=== PATIENT | female | born 1930 | race Caucasian/White ===

== ENCOUNTER 2016-12-27 19:44 | Observation (INO) ==
[2016-12-27] MEDS ORDERED: Aspirin 81 MG TAB.CHEW PO ONE (20:05)
--- NOTE | 2016-12-27 20:34 | Emergency Department Note ---
Disposition Clinical Impression: Chest pain Disposition: Home, Self-Care Condition: Good Chest Pain HPI - General Chief Complaint: ED Chest Pain Stated Complaint: CP Time Seen by Provider: 12/27/16 19:52 Source: patient Limitations: no limitations Vital Signs Reviewed: Yes Nursing Notes Reviewed: Yes - History of Present Illness HPI Narrative: Ms. Silverio, an 86yo female, presents from home by daily with chief complaint chest pain. Onset this morning when she woke up; the chest pain did not wake her from sleep rather she awoke with the chest pain present. Described as a sharp stab localized to the left chest, nonradiating. Present at rest. Unchanged with exertion or movement. Duration of her pain is 2-3 minutes before self resolves only to return again intermittently. Denies associated dyspnea, diaphoresis, nausea, back pain, neck pain, jaw pain. Patient denies unusual weakness. Patient denies any anticoagulant or antiplatelet use including aspirin. Patient's last cardiac catheter was 2003. Her last chemical stress test was, " a very long time ago." PMH: Hypertension, hyperlipidemia, diabetes, obesity. Remote [place] without stents (2003). Severity scale (1-10): 0 - Related Data Allergies Allergy/AdvReac Type Severity Reaction Status Date / Time latex Allergy Rash Verified 01/13/16 12:26 adhesive AdvReac Rash Verified 12/27/16 22:36 modafinil [From Provigil] AdvReac Unkown Verified 12/27/16 22:36 Penicillins [PCN] AdvReac Rash Verified 01/13/16 12:26 All systems ED: reviewed and negative except as stated. Constitutional: Denies: fever, chills, weakness ENT ED: Denies: throat pain Cardiovascular: Reports: chest pain, dyspnea on exertion. Denies: palpitations , orthopnea, edema, syncope Respiratory: Denies: cough, dyspnea, wheezes Gastrointestinal: Denies: abdominal pain, nausea, vomiting, diarrhea, constipation Genitourinary: Denies: urgency, dysuria, frequency Musculoskeletal: Denies: back pain, neck pain Neurological: Denies: headache, weakness, numbness, paresthesias, confusion, vertigo Hematological/Lymphatic: Denies: easy bleeding, easy bruising Chest Pain PMH - Past Medical History Medical history: Reports: arthritis, diabetes, hyperlipidemia, hypertension Psychiatric history: Reports: anxiety, depression - Social History Smoking Status: Never smoker Alcohol use: Reports: occasionally Drug use: Reports: none Physical Exam General: Patient is alert, oriented, and in no acute distress. HEENT: No facial asymmetry. Head is normocephalic and atraumatic. PERRLA. Trachea midline. Cardiovascular: Heart regular rate and rhythm without clicks, rubs, gallops, or murmurs. No JVD. PMI nondisplaced. No pedal edema. Pain reproducible to palpation along the description of the left pectoralis minor. Respiratory: Symmetric chest rise with good respiratory effort. Bilateral breath sounds are clear without wheezing, crackles, or rhonchi. Abdomen: Obese. Bowel sounds present normoactive x-4 quadrants. Abdomen is soft, nondistended, and nontender. Psych: Patient's affect is appropriate for situation. - General Limitations: no limitations General appearance: alert, in no apparent distress Course Course Narrative: Patient does have chest pain to palpation along the distribution of the left pectoralis minor however she states this is different any chest pain which brought her into the emergency department. She has multiple comorbidities. We will perform a chest pain workup. Anticipate admission to hospital for chest pain with rule out for ACS. Patient's EKG shows sinus rhythm with first-degree AV block. Lab work is concerning; negative troponin, likely abnormalities, normal renal function, no CBC abnormalities. Disposition the patient and her family at bedside regarding the results of these lab studies as well as my clinical concern regarding her cardiac risk factors as well as her lack of recent cardiac studies to verbally risk stratify her. They collectively agreed for admission. Spoke with the hospitalist, Dr. Armtsrong, who agrees to except the patient to telemetry bed. She has no additional questions or concerns at this time. Vital Signs Temperature 98.7 F 12/27/16 19:47 Pulse Rate 74 12/27/16 19:47 Respiratory Rate 16 12/27/16 19:47 Blood Pressure 165/83 12/27/16 19:47 O2 Sat by Pulse Oximetry 65 L 12/27/16 19:47 Temperature 98.7 F 12/27/16 19:47 Pulse Rate 61 12/27/16 22:00 Respiratory Rate 18 12/27/16 22:00 Blood Pressure 140/68 12/27/16 22:00 O2 Sat by Pulse Oximetry 93 L 12/27/16 22:00 Oxygen Delivery Oxygen Delivery Room Air Chest Pain - Lab Data Lab results reviewed: Yes I reviewed the patient's lab results. Result diagrams: 12/27/16 20:45 12/27/16 20:45 Lab Results 12/27/16 12/27/16 12/27/16 Range/Units 20:45 20:45 20:45 WBC 10.2 (4.3-11.1) K/mcL RBC 4.27 (3.82-4.97) M/mcL Hgb 12.9 (11.5-15.4) g/dL Hct 39.1 (35.3-44.9) % MCV 91.6 (83.0-100.0) fL MCH 30.2 (28.0-33.3) pg MCHC 33.0 (31.6-35.5) g/dL RDW 13.6 (11.5-14.5) % Plt Count 265 (140-400) K/mcL MPV 10.3 (9.4-12.4) fL Immature Gran % 0.2 (0-4) % Seg Neutrophils % 34.6 % Lymphocytes % 47.7 % Monocytes % 7.1 % Eosinophils % 9.4 % Basophils % 1.0 % Neutrophils # 3.5 (1.6-8.9) K/mcL Lymphocytes # 4.9 H (0.6-4.6) K/mcL Monocytes # 0.7 (0.0-1.3) K/mcL Eosinophils # 1.0 H (0.0-0.6) K/mcL Basophils # 0.1 (0.0-0.2) K/mcL Sodium 141 (136-145) mEq/L Potassium 3.9 (3.5-4.5) mEq/L Chloride 103 (98-109) mEq/L Carbon Dioxide 31 H (19-29) mEq/L BUN 16 (7-20) mg/dL Creatinine 0.76 (0.57-1.11) mg/dL Est GFR ( Amer) > 60 (> 60) Est GFR (Non-Af Amer) > 60 (> 60) BUN/Creatinine Ratio 21 (6-26) Glucose 128 H (70-99) mg/dL Calculated Osmolality 295 (280-300) Calcium 9.1 (8.6-10.8) mg/dL Troponin I 0.01 (0-0.03) ng/mL - Radiology Data Radiology results reviewed: Yes I reviewed the patient's radiology results. Chest X-Ray 12/27/16 20:05 IMPRESSION: No acute findings. D/ / Mindy Reddy MD / Mindy Reddy MD Interpreting Provider: Mindy Reddy MD - EKG Data EKG attestation: Yes I reviewed and interpreted this EKG. EKG results narrative: EKG dated 27 December at 19:59 interpreted as sinus rhythm with rate of 67. First- degree AV block with DC 214. QRS 82, QT/QTC 399/414. Normal axis. No ST elevations or depressions. Isolated T-wave inversion in V1. No previous EKG for comparison. Heart Score - Score History: Slightly Suspicious EKG: Non Specific repolarisation Disturbance Age: Greater than 65 Risk Factors: Equal/Greater than 3 risk factor or history of atherosclerotic disease Troponin: Less than normal limit HEART Score Total: 5 Attestation Statement - Attestation Attestation: DR Eduardo note: Pt seen in conjunction w/ Resident Damien Gomez; Please see his charting for complete documentation; I agree w/ pt's treatment and disposition and spent face to face time w/ the pt; admitted pain-free. Intermittent left parasternal chest pain since this morning. EKG and blood work unremarkable at this time
[2016-12-27 20:54] LABS: Basophils # 0.1 K/mcL (0.0-0.2); Eosinophils % 9.4 %; Hematocrit 39.1 % (35.3-44.9); Hemoglobin 12.9 g/dL (11.5-15.4); Immature Granulocytes % 0.2 % (0-4); Lymphocytes # 4.9 K/mcL (0.6-4.6); Lymphocytes % 47.7 %; Mean Corpuscular Hemoglobin 30.2 pg (28.0-33.3); Mean Corpuscular Volume 91.6 fL (83.0-100.0); Mean Platelet Volume 10.3 fL (9.4-12.4); Monocytes # 0.7 K/mcL (0.0-1.3); Monocytes % 7.1 %; Neutrophils # 3.5 K/mcL (1.6-8.9); Platelet Count 265 K/mcL (140-400); Red Blood Count 4.27 M/mcL (3.82-4.97); Red Cell Distribution Width 13.6 % (11.5-14.5); Segmented Neutrophils % 34.6 %
[2016-12-27 21:07] LABS: BUN/Creatinine Ratio 21 (6-26); Blood Urea Nitrogen 16 mg/dL (7-20); Carbon Dioxide 31 mEq/L (19-29); Chloride 103 mEq/L (98-109); Glucose 128 mg/dL (70-99); Potassium 3.9 mEq/L (3.5-4.5); Sodium 141 mEq/L (136-145); eGFR For African Americans > 60 (> 60); eGFR For Non-African Americans > 60 (> 60)
[2016-12-27 21:08] LABS: Calcium 9.1 mg/dL (8.6-10.8); Osmolality,Calculated 295 (280-300)
--- NOTE | 2016-12-28 00:57 | Internal Med History&Physical ---
Date of Encounter: 12/28/16 Time of Encounter: 01:47 Assessment and Plan (1) Chest pain Current visit: Yes Status: Acute trend troponins echo nuclear stress consult to cardiology Qualifiers: Chest pain type: unspecified Qualified Code(s): R07.9 - Chest pain, unspecified (2) HTN (hypertension) Current visit: Yes Status: Chronic continue home medication Qualifiers: Hypertension type: essential hypertension Qualified Code(s): I10 - Essential (primary) hypertension (3) CAD (coronary artery disease) Current visit: Yes Status: Chronic Qualifiers: Coronary Disease-Associated Artery/Lesion type: [place] artery [place] vs. 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 Silverio is a 86 year old hypertensive diabetic with hyperlipemidia, CAD, HENRY , and obesity who presents to the ER with chest pain. The chest pain started this morning and has been on and off all day. The chest pain is sharp in nature like a stabbing of a needle. This located in the left side of her chest to chest pain only last for a very short amount of time and comes and goes. The chest pain does not radiate anywhere. There is no associated shortness of breath, diaphoresis, nausea, vomiting. Review of records shows cardiology work-up history to include the following: [facility] 08/2011 moderate single vessel disease, 50-60% stenosis distal R coronary artery; LV EF 60% nuclear stress 07/2011 EKG negative for ischemia; nuclear exam evidence for mild anterior, nishant-septal, and anterolateral reversible decreased uptake suggestive of stress induced ischemia; gated EF 69% echo 06/2011 LVEF 70%; aortic valve leaflets mildly calcified; mitral valve normal structure, mild mitral annular calcification Past Med Surg Social Fam HX - Past Medical History Medical history: arthritis, coronary artery disease, diabetes, GERD, hyperlipidemia, hypertension, other (lumbar back pain, HENRY, osteopenia) Psychiatric history: anxiety, depression - Past Surgical History Surgical History: appendectomy, cataract, cholecystectomy, herniorrhaphy, hysterectomy, knee replacement - Social History Smoking Status: Never smoker Smokeless Tobacco Status: No Alcohol use: occasionally Drug use: none - Family History Mother Adopted: [place]: SYLVAIN Family Member Ethnicity: Non- Living Status: Age at : 63 Cause of : STROKE Hx Family Cardiac Disorders: Yes ([place]) Hx Family Cancer: Yes (BREAST) Hx Family GI Disorders: Yes Hx Family Endocrine Disorder: Yes (DM) Hx Family Musculoskeletal Disorders: No Hx Family Neuromuscular Disorders: No Hx Family Neurologic Disorders: Yes (CVA) Hx Family HEENT Disorders: Yes (SX) Hx Family Autoimmune Disorders: No Hx Family Reproductive Disorders: No Hx Family Psychosocial Disorders: No Hx Family Medical Disorders: No Internal Medicine - H&P: Meds Alendronate Sodium [Fosamax] 70 mg PO QWEEK 12/27/16 [History] Amitriptyline [Elavil] 10 mg PO HS 12/27/16 [History] Citalopram Hydrobromide [Citalopram HBr] 10 mg PO DAILY 12/27/16 [History] Furosemide [Lasix] 40 mg PO DAILY 12/27/16 [History] Gabapentin [Neurontin] 300 mg PO TID 12/27/16 [History] Glimepiride [Amaryl] 4 mg PO QAM 12/27/16 [History] Loratadine [Claritin] 10 mg PO DAILY 12/27/16 [History] Losartan Potassium [Cozaar] 100 mg PO DAILY 12/27/16 [History] Metformin [Glucophage] 500 mg PO BIDWM 12/27/16 [History] Multivitamin [Multi-Day Vitamins] 1 each PO DAILY 12/27/16 [History] Naproxen Sodium [Aleve] 220 mg PO Q12H 12/27/16 [History] Oxycodone HCl/Acetaminophen [Percocet 5-325 mg Tablet] 1 each PO BID PRN [History] Potassium Chloride [K-Tab ER] 20 meq PO DAILY 12/27/16 [History] Sucralfate [Carafate] 1 gm PO 0730,1630 12/27/16 [History] Vit C/Vit E/Lutein/Min/[place]-3 [Ocuvite Softgel] 1 each PO DAILY 12/27/16 [ History] Allergies latex Allergy (Verified 01/13/16 12:26) Rash adhesive Adverse Reaction (Verified 12/27/16 22:36) Rash modafinil [From Provigil] Adverse Reaction (Verified 12/27/16 22:36) Unkown Penicillins [PCN] Adverse Reaction (Verified 01/13/16 12:26) Rash All Systems PM: A 10-system review of systems was performed and is negative for pertinent findings except as documented above in the HPI. - Constitutional Constitutional: no chills, no fatigue, no fever(s), no night sweats - EENT Eyes: no blurry vision, no change in vision, no discharge, no pain, no photophobia Ears: no ear discharge, no ear pain, no tinnitus Nose, mouth and throat: no dysphagia, no nasal congestion, no nasal discharge, no neck pain, no sore throat - Cardiovascular Cardiovascular ROS IM: chest pain, no diaphoresis, no dyspnea, no lightheadedness, no palpitations, no syncope - Respiratory Respiratory: no cough, no dyspnea, no wheezing, no excessive phlegm production - Gastrointestinal Gastrointestinal: no abdominal pain, no diarrhea, no hematemesis, no hematochezia, no melena, no nausea, no vomiting - Genitourinary Genitourinary: no change in urinary stream, no dysuria, no flank pain, no hematuria, no urinary frequency, no urinary hesitancy - Musculoskeletal Musculoskeletal ROS IM: no arthralgias, no myalgias, no numbness, no tingling - Integumentary Integumentary IM: no rash, no unusual bruising - Neurological Neurological ROS: no confusion, no convulsions, no focal weakness, no numbness, no tingling, no tremor(s) - Hematologic/Lymphatic Hematologic/Lymphatic: no easy bruising - Constitutional Vitals: Temp Pulse Resp BP Pulse Ox 97.6 F 63 12 152/82 93 L 12/27/16 23:53 12/27/16 23:53 12/27/16 23:53 12/27/16 23:53 12/27/16 23:53 General appearance: Present: A&O X 3, pleasant, no acute distress, obese, answers questions appropriately - Head Head exam: Present: atraumatic, normocephalic - Eye Eye exam: Present: PERRL, conjuntiva pink, sclera anicteric Pupils: Present: PERRL - Neck Neck exam general surgery: Present: supple, trachea midline. Absent: lymphadenopathy - Respiratory Respiratory exam: Present: CTAB. Absent: accessory muscle use, rales, rhonchi, wheezes - Cardiovascular Cardiovascular exam: Present: RRR, +S1, +S2. Absent: diastolic murmur, gallop, rubs, systolic murmur - GI/Abdominal GI/Abdominal exam: Present: normal bowel sounds, soft, no peritoneal signs. Absent: distended, tenderness - Extremities Exam Extremities exam: Present: warm, radial pulses palpable and symetrical. Absent : calf tenderness, cyanotic, pedal edema - Neurological Exam Neurological exam: Present: CN II-XII intact, oriented X3, no focal deficits. Absent: pronater drift, facial droop, speech deficit - Skin Skin exam: Present: dry, intact Internal Med - H&P Results - Labs CBC & Chem 7: 12/27/16 20:45 12/27/16 20:45
[2016-12-28] MEDS ORDERED: D5% in Water 1,000 ML IV PRN ×2 (01:53→01:59)
[2016-12-28] MEDS ORDERED: *HR* Dextrose 50 % in Water (Syg) 50 ML SYRINGE IVP PRN ×2 (01:53→01:59)
[2016-12-28] MEDS ORDERED: Dextrose Gel 15 GM PO PRN ×4 (01:53→01:59)
[2016-12-28] MEDS ORDERED: Acetaminophen 325 MG TABLET PO PRN (01:53)
[2016-12-28] MEDS ORDERED: Naloxone 0.4 MG/ML INJ IVP PRN (01:53)
--- NOTE | 2016-12-28 03:15 | Event Note ---
Date of Encounter: 12/28/16 Time of Encounter: 03:14 Efficiency and examined with medical payment poster. Agree with assessment and plan. Patient with risk factors including diabetes mellitus, hypertension, dyslipidemia what a coronary angiogram 2010 showing 50 to 60% with RC disease presents to the hospital with chest pain. Chest pain appeared at typical localized lasting for a few seconds. Serial cardiac enzymes. Stress test will be ordered. Cardiology evaluation.
[2016-12-28] MEDS: *HR* Heparin 5,000 UNIT/ML VIAL SQ SCH ×3 (06:00→21:30)
[2016-12-28] MEDS: Insulin LISPRO 300 UNITS/3 ML VIAL SQ SCH ×4 (06:15→23:56)
[2016-12-28] MEDS ORDERED: Regadenoson 0.4 MG/5 ML SYRINGE IVP ONE (07:20)
--- NOTE | 2016-12-28 08:41 | Cardiology Consult Note ---
Date of Encounter: 12/28/16 Time of Encounter: 08:27 Assessment and Plan (1) Chest pain Current Visit: Yes Status: Acute Atypical brief episode of chest pain. Troponin negative. Stress test and echo pending. H/o moderate non-obstructive CAD. We will follow with you. Qualifiers: Chest pain type: unspecified Qualified Code(s): R07.9 - Chest pain, unspecified (2) CAD (coronary artery disease) Current Visit: Yes Status: Chronic [facility] 08/2011 showed moderate single vessel disease, 50-60% stenosis in the dRCA; LV EF 60% echo 06/2011 LVEF 70%; aortic valve leaflets mildly calcified; mitral valve normal structure, mild mitral annular calcification. She does not follow with cardiology currently. Recommended asa, statin, and bb. Aggressive risk factor modification. Qualifiers: Coronary Disease-Associated Artery/Lesion type: [place] artery [place] vs. transplanted heart: [place] heart Associated angina: without angina Qualified Code(s): I25.10 - Atherosclerotic heart disease of [place] coronary artery without angina pectoris (3) HTN (hypertension) Current Visit: Yes Status: Chronic B/p acceptable this morning. Qualifiers: Hypertension type: essential hypertension Qualified Code(s): I10 - Essential (primary) hypertension Discussion w patient/family: The assessment and plan as outlined above was discussed with the patient and/or family members who expressed understanding and agreement. All questions were answered. Thank you for involving us in the care of your patient. Please call with any questions. History of Present Illness Consult date: 12/28/16 Requesting physician: Colby Armstrong Consult reason: Chest pain Chief complaint: chest pain History of present illness: Ms. Silverio is a 86 year old female with a history of moderate non-obstructive CAD, DM type II, HTN, and HLD who presents with chest pain. Sharp pain over her left breast lasting only a second. Pain was non-radiating. Her daughters decided to bring her to the hospital. She denies any other episodes of chest pain. She admits to SOB with exertion that is stable. Denies orthopnea, PND, or edema. Denies n/v or diaphoresis. Denies palpitations or dizziness. She was seen in the stress lab. Troponin negative x2. Stress test and echocardiogram ordered by primary team. Previous cardiac testing: [facility] 08/2011 moderate single vessel disease, 50-60% stenosis dRCA; LV EF 60% nuclear stress 07/2011 EKG negative for ischemia; nuclear exam evidence for mild anterior, nishant-septal, and anterolateral reversible decreased uptake suggestive of stress induced ischemia; gated EF 69% echo 06/2011 LVEF 70%; aortic valve leaflets mildly calcified; mitral valve normal structure, mild mitral annular calcification Past Med Surg Social Fam HX - Past Medical History Medical history: arthritis, coronary artery disease, diabetes, GERD, hyperlipidemia, hypertension, other (lumbar back pain, HENRY, osteopenia) Psychiatric history: anxiety, depression - Past Surgical History Surgical History: appendectomy, cataract, cholecystectomy, herniorrhaphy, hysterectomy, knee replacement - Social History Smoking Status: Never smoker Smokeless Tobacco Status: No Alcohol use: occasionally Drug use: none - Family History Mother Adopted: [place]: SYLVAIN Family Member Ethnicity: Non- Living Status: Age at : 63 Cause of : STROKE Hx Family Cardiac Disorders: Yes ([place]) Hx Family Cancer: Yes (BREAST) Hx Family GI Disorders: Yes Hx Family Endocrine Disorder: Yes (DM) Hx Family Musculoskeletal Disorders: No Hx Family Neuromuscular Disorders: No Hx Family Neurologic Disorders: Yes (CVA) Hx Family HEENT Disorders: Yes (SX) Hx Family Autoimmune Disorders: No Hx Family Reproductive Disorders: No Hx Family Psychosocial Disorders: No Hx Family Medical Disorders: No Medications and Allergies Alendronate Sodium [Fosamax] 70 mg PO QWEEK 12/27/16 [History] Amitriptyline [Elavil] 10 mg PO HS 12/27/16 [History] Citalopram Hydrobromide [Citalopram HBr] 10 mg PO DAILY 12/27/16 [History] Furosemide [Lasix] 40 mg PO DAILY 12/27/16 [History] Gabapentin [Neurontin] 300 mg PO TID 12/27/16 [History] Glimepiride [Amaryl] 4 mg PO QAM 12/27/16 [History] Loratadine [Claritin] 10 mg PO DAILY 12/27/16 [History] Losartan Potassium [Cozaar] 100 mg PO DAILY 12/27/16 [History] Metformin [Glucophage] 500 mg PO BIDWM 12/27/16 [History] Multivitamin [Multi-Day Vitamins] 1 each PO DAILY 12/27/16 [History] Naproxen Sodium [Aleve] 220 mg PO Q12H 12/27/16 [History] Oxycodone HCl/Acetaminophen [Percocet 5-325 mg Tablet] 1 each PO BID PRN [History] Potassium Chloride [K-Tab ER] 20 meq PO DAILY 12/27/16 [History] Sucralfate [Carafate] 1 gm PO 0730,1630 12/27/16 [History] Vit C/Vit E/Lutein/Min/[place]-3 [Ocuvite Softgel] 1 each PO DAILY 12/27/16 [ History] Allergies latex Allergy (Verified 01/13/16 12:26) Rash adhesive Adverse Reaction (Verified 12/27/16 22:36) Rash modafinil [From Provigil] Adverse Reaction (Verified 12/27/16 22:36) Unkown Penicillins [PCN] Adverse Reaction (Verified 01/13/16 12:26) Rash All Systems Review: A 10-system review of systems was performed and is negative for pertinent findings except as documented above in the HPI. Physical Examination Vital Signs Temp Pulse Resp BP Pulse Ox 12/28/16 04:13 97.9 F 69 12 112/67 93 L 12/27/16 23:53 97.6 F 63 12 152/82 93 L 12/27/16 23:01 18 163/88 12/27/16 22:00 61 18 140/68 93 L 12/27/16 20:27 67 18 148/72 95 12/27/16 19:47 98.7 F 74 16 165/83 95 Intake and Output 12/27/16 12/28/16 12/28/16 23:59 07:59 15:59 Other: Weight 101.333 kg 100.879 kg Blood Glucose* 138 Patient Weight 12/28/16 23:59 Weight 100.879 kg General: Conversant, No Apparent Distress HEENT: Atraumatic, Normocephaly, Mucus Membranes Moist Neck: No JVD, Normal carotid pulses Cardiac: Reg Rate and Rhythm, Normal S1 and S2, No Murmur Lungs: Normal Breath Sounds, No Wheeze, Rales, Rhonchi Neuro: Alert and responsive, No focal deficits noted Abdomen: Soft, Non-Tender Skin: No rashes noted on visualized skin Musculoskeletal: No Chest Wall Tenderness Extremities: No Clubbing, No Cyanosis, No Edema, Normal Pulses Results 12/27/16 20:45 12/27/16 20:45 Lab Results 12/28/16 03:28 Troponin I 0.00 Chest X-Ray 12/27/16 20:05 IMPRESSION: No acute findings. D/ / Mindy Reddy MD / Mindy Reddy MD Interpreting Provider: Mindy Reddy MD - EKG Interpretation EKG results cardiology: personally reviewed (SR with no acute ST changes.) Consult Discharge Plan - Plan Referrals: Rosita Swain, [employer] [Primary Care Provider] -
[2016-12-28] MEDS ORDERED: Aspirin 325 MG TABLET PO SCH (09:00)
[2016-12-28] MEDS ORDERED: Aspirin 81 MG TAB.CHEW ONE (10:02)
[2016-12-28] MEDS: Sucralfate 1 GM TABLET PO SCH ×2 (10:03→17:13)
[2016-12-28] MEDS: Loratadine 10 MG TABLET PO SCH (10:03)
[2016-12-28] MEDS: Furosemide 40 MG TABLET PO SCH (10:03)
[2016-12-28] MEDS: Gabapentin 300 MG CAPSULE PO SCH ×3 (10:03→21:30)
[2016-12-28] MEDS: Aspirin 81 MG TAB.CHEW PO SCH (10:03)
--- NOTE | 2016-12-28 12:24 | ECHO - Doppler Report ---
Echocardiogram Name: Carole Silverio Date of Study: 12/28/2016 Date: 1930 Ht: 62.0 in Medical Record#: [id number] Age: 86 Wt: 222.0 lb Gender: Female BSA: 2 Order #: [id number] Location: [facility] Room #: [id number] Reading Physician: Bryant Giron MD, [facility] [employer]ip[employer] Designer: Gregorio Curiel RDCS Ordering Physician: Shanika Larios DO Primary Physician: Rosita Swain CNP Indications: Chest pain Impressions: Normal LV systolic function, LVEF 70-75%. Mild left ventricular diastolic dysfunction. Normal right ventricular size and function. Mildly dilated left atrium. No significant valvular dysfunction. Left Ventricular Wall Motion: Rest Echo Findings All wall segments showed normal motion. Findings: Study Quality * Suboptimal echo windows. ECG Findings * Normal sinus rhythm. Left Ventricle * Normal LV systolic function, LVEF 70-75%. * Normal LV chamber size and wall thickness. * Mild left ventricular diastolic dysfunction. Right Ventricle * Normal right ventricular size and function. Left Atrium * Mildly dilated left atrium. Right Atrium * Normal right atrial size. Aorta * Normally sized aortic root. Pericardium * There is a trivial pericardial effusion present. IVC * The IVC is not dilated. Aortic Valve * Trileaflet aortic valve. * Mildly sclerotic aortic valve leaflets. * No aortic stenosis. * No aortic regurgitation. Mitral Valve * Mild mitral annular calcification * No mitral stenosis. * Trace mitral regurgitation. Tricuspid Valve * Tricuspid valve not well visualized. * No tricuspid stenosis. * Trace tricuspid regurgitation. * Unable to estimate RVSP due to lack of TR jet. Pulmonic Valve * Pulmonic valve not well visualized. * No pulmonic stenosis. * Trace pulmonic regurgitation. Interatrial Septum * Lipomatous interatrial septum. History Hypertension Diabetes Hypercholesteremia Family History of CAD History of CAD/PTCA Myocardial Infarction 07/18/11 a Previous Echo was performed. Measurements: BP: 112/ 62 2D Normal Values RVIDd: 1.88 cm IVSd: 1.02 cm 0.6 - 1.0 cm LVIDd: 4.76 cm 3.7 - 5.6 cm LVPWd: .98 cm 0.6 - 1.1 cm LVIDs: 3.29 cm 1.5 - 3.6 cm AO: 3.10 cm < 4.0 cm %FS: 30.90 cm >25 % LA volume: 66 Mitral Valve Peak E:.89 m/sec Peak A:1.20 m/sec E/A Ratio:0.7 Updated by Bryant Giron MD, [facility] on 12/28/2016 12:20:28 PM electronically signed on 12/28/2016 12:20:54 PM with status of Final [employer] [place]: 1=Normal, 2=Hypokinesis, 3=Akinesis, 4=Dyskinesis, 5=Aneurysmal, 6=Hyperkinetic, X=Not Visualized (Blank)=Missing
--- NOTE | 2016-12-28 15:46 | Internal Med Progress Note ---
Date of Encounter: 12/28/16 Time of Encounter: 12:30 - Assessment and plan (1) Chest pain Current Visit: Yes Status: Acute Assessment and plan: Patient currently denies chest pain or shortness of breath. Echocardiogram unremarkable with ejection fraction of 70-75%. Chest x-ray negative. 2 [place] stress test in progress was second part tomorrow morning. Possible discharge if stress test is negative. Cardiology on board. ITS Impressions Chest X-Ray 12/27/16 20:05 IMPRESSION: No acute findings. D/ / Mindy Reddy MD / Mindy Reddy MD Interpreting Provider: Mindy Reddy MD Echocardiogram impressions: Normal LV systolic function, LVEF 70-75%. Mild left ventricular diastolic dysfunction. Normal right ventricular size and function. Mildly dilated left atrium. No significant valvular dysfunction. Qualifiers: Chest pain type: unspecified Qualified Code(s): R07.9 - Chest pain, unspecified (2) CAD (coronary artery disease) Current Visit: Yes Status: Chronic Assessment and plan: Patient currently denies chest pain Qualifiers: Coronary Disease-Associated Artery/Lesion type: [place] artery [place] vs. transplanted heart: [place] heart Associated angina: without angina Qualified Code(s): I25.10 - Atherosclerotic heart disease of [place] coronary artery without angina pectoris (3) Diabetes Current Visit: Yes Status: Chronic Assessment and plan: Appears controlled at home with the A1c in June of 6.4%. Continue sliding scale while admitted Qualifiers: Diabetes mellitus type: type 2 Diabetes mellitus complication status: with neurologic complications Diabetes mellitus complication detail: with unspecified neuropathy Diabetes mellitus nursing home insulin use: without terminal carman use Qualified Code(s): E11.40 - Type 2 diabetes mellitus with diabetic neuropathy, unspecified (4) HTN (hypertension) Current Visit: Yes Status: Chronic Assessment and plan: Controlled, at home, patient is on losartan 100 mg daily, and furosemide 40 mg daily and these both have been continued, we will continue to trend Qualifiers: Hypertension type: essential hypertension Qualified Code(s): I10 - Essential (primary) hypertension (5) Morbid obesity with BMI of 40.0-44.9, adult Current Visit: Yes Status: Chronic - Subjective Interval history: Patient seen and examined. On examination, patient is sitting upright in bed conversing with family and eating lunch. Patient currently denies chest pain or shortness of breath. - Constitutional Vitals: Temp Pulse Resp BP Pulse Ox 97.6 F 54 15 120/59 93 L 12/28/16 15:27 12/28/16 15:27 12/28/16 15:27 12/28/16 15:27 12/28/16 15:27 General appearance: Present: A&O X 3, morbidly obese, pleasant, no acute distress, answers questions appropriately - Head Head exam: Present: atraumatic, normocephalic - Eye Eye exam: Present: PERRL, conjuntiva pink, sclera anicteric Pupils: Present: PERRL - Neck Neck exam general surgery: Present: supple, trachea midline. Absent: lymphadenopathy - Respiratory Respiratory exam: Present: CTAB. Absent: accessory muscle use, rales, respiratory distress, rhonchi, wheezes - Cardiovascular Cardiovascular exam: Present: RRR, +S1, +S2. Absent: diastolic murmur, gallop, rubs, systolic murmur - GI/Abdominal GI/Abdominal exam: Present: normal bowel sounds, soft, no peritoneal signs. Absent: distended, tenderness - Extremities Exam Extremities exam: Present: warm, radial pulses palpable and symetrical. Absent : calf tenderness, cyanotic, pedal edema - Neurological Exam Neurological exam: Present: alert, CN II-XII intact, oriented X3, no focal deficits, strengths equal and symetr throughout. Absent: pronater drift, facial droop, speech deficit - Skin Skin exam: Present: dry, intact, normal color, warm Internal Medicine: Result - Labs CBC & Chem 7: 12/27/16 20:45 12/27/16 20:45 Labs: Cardiac Enzymes 12/28/16 Range/Units 03:28 Troponin I 0.00 (0-0.03) ng/mL Consult Discharge Plan - Plan Referrals: Rosita Swain, TRAFFIC I MANAGER [Primary Care Provider] -
--- NOTE | 2016-12-28 18:02 | Electrocardiograph Report ---
[place] [id number] Test Date: 2016-12-27 Pat Name: Carole Grade Teacher Department: 103 Room: 3B32 Gender: F Solution Coordinator: : 1930 Requested By: Damien Gomez Order Number: [id number] Reading MD: Alaina Unger Measurements Intervals [place] Rate: 67 P: 66 DC: 214 QRS: 9 QRSD: 82 T: 25 QT: 399 QTc: 414 Interpretive Statements SINUS RHYTHM WITH FIRST DEGREE AV BLOCK LOW QRS VOLTAGE IN PRECORDIAL LEADS Electronically Signed On 12-28-2016 18:01:33 EST by Alaina Unger
[2016-12-29] MEDS: *HR* Heparin 5,000 UNIT/ML VIAL SQ SCH ×2 (05:33→13:33)
[2016-12-29] MEDS: Insulin LISPRO 300 UNITS/3 ML VIAL SQ SCH ×2 (05:36→13:34)
[2016-12-29] MEDS: Furosemide 40 MG TABLET PO SCH (08:37)
[2016-12-29] MEDS: Aspirin 81 MG TAB.CHEW PO SCH (08:37)
[2016-12-29] MEDS: Sucralfate 1 GM TABLET PO SCH (08:37)
[2016-12-29] MEDS: Gabapentin 300 MG CAPSULE PO SCH ×2 (08:37→13:34)
[2016-12-29] MEDS: Loratadine 10 MG TABLET PO SCH (08:38)
[2016-12-29] MEDS ORDERED: Aspirin 81 MG TAB.CHEW PO SCH (09:00)
[2016-12-29 11:31] VITALS: BP 119/56
--- NOTE | 2016-12-29 12:04 | Cardiology Progress Note ---
Date of Encounter: 12/29/16 Time of Encounter: 12:02 Assessment and Plan (1) Chest pain Current Visit: Yes Status: Acute Atypical brief episode of chest pain. Troponin negative. Stress test pending. TTE shows EF 70-75%, mild diastolic dysfunction, no significant valvular disease. H/o moderate non-obstructive CAD. If stress test is negative ok for d/c home. F/u with [facility] will be made in 2 weeks. Continue asa, statin, and bb. Qualifiers: Chest pain type: unspecified Qualified Code(s): R07.9 - Chest pain, unspecified (2) CAD (coronary artery disease) Current Visit: Yes Status: Chronic [facility] 08/2011 showed moderate single vessel disease, 50-60% stenosis in the dRCA; LV EF 60% She does not follow with cardiology currently. Recommended asa, statin, and bb. Aggressive risk factor modification. Qualifiers: Coronary Disease-Associated Artery/Lesion type: [place] artery [place] vs. transplanted heart: [place] heart Associated angina: without angina Qualified Code(s): I25.10 - Atherosclerotic heart disease of [place] coronary artery without angina pectoris (3) HTN (hypertension) Current Visit: Yes Status: Chronic B/p acceptable this morning. Qualifiers: Hypertension type: essential hypertension Qualified Code(s): I10 - Essential (primary) hypertension Discussion w patient/family: The assessment and plan as outlined above was discussed with the patient and/or family members who expressed understanding and agreement. All questions were answered. Thank you for involving us in the care of your patient. Please call with any questions. Subjective Principal diagnosis: Chest pain Interval history: No recurrent chest pain since admission. Daughter at bedside. 2nd half of two day stress completed this morning. Objective Vital Signs, Last 4 Hours Temp Pulse Resp BP Pulse Ox 12/29/16 11:30 97.9 F 55 16 119/56 93 L 12/29/16 08:40 92 L General: Conversant, No Apparent Distress HEENT: Atraumatic, Normocephaly, Mucus Membranes Moist Neck: No JVD, Normal carotid pulses Cardiac: Reg Rate and Rhythm, Normal S1 and S2, No Murmur Lungs: Normal Breath Sounds, No Wheeze, Rales, Rhonchi Neuro: Alert and responsive, No focal deficits noted Abdomen: Soft, Non-Tender Skin: No rashes noted on visualized skin Musculoskeletal: No Chest Wall Tenderness Extremities: No Clubbing, No Cyanosis, No Edema, Normal Pulses Results 12/27/16 20:45 12/27/16 20:45 - Imaging and Cardiology Echo: report reviewed (Ef 70-75%, mild DD, no significant valvular disease.) - EKG Interpretation EKG results cardiology: other Consult Discharge Plan - Plan Referrals: Rosita Swain, SCHOOL LIBRARY MEDIA PROGRAM DIRECTOR [Primary Care Provider] -
--- NOTE | 2016-12-29 14:16 | Nuclear Medicine Stress Report ---
Regadenoson Nuclear 2 Name: Carole Silverio Date of Study: 12/28/2016 Date: 1930 Ht: 62.0 in Medical Record#: [id number] Age: 86 Wt: 222.0 lb Gender: Female Order #: [id number] Location: [facility] Room: [facility] Supervising Provider: Ken Delgado CNP Reading Physician: Williams Ngo DO, JASMEET METZ FASNC Ordering Physician: Maya White CNP Primary Care Physician: Rosita Swain CNP Stress Technologist: Rowdy Saenz CRT Patient Registration Specialist: Juan Jose Burch Indications: Coronary Artery Disease, Chest Pain Impression: Pharmacologic stress ECG is negative for ischemia at level of heart rate achieved. Gated EF = 81%. Perfusion imaging was negative for ischemia or infarct. History: Hypertension Diabetes Hypercholesteremia Stress Test Summary: Stress Test Type: Pharmacologic Regadenoson 0.4mg/5ml given IV Baseline Information: Initial Heart Rate: 73 Blood Pressure: 158/78 Stress Information: Test Terminated Due to (primary): As per protocol Maximum Blood Pressure: 148/70 Maximum Heart Rate: 95 Percent Maximum Heart Rate Achieved: 71 Double Product: [id number] METS Reached: 1 Symptoms: No chest symptoms Nuclear Summary: SPECT myocardial perfusion imaging using Tc99m Sestamibi given intravenously was performed at rest and following cardiac stress testing. The resting images were obtained following initial dose of 30.2 mCi. Following stress an additional dose of 35.6 mCi was given at peak exercise or 30 seconds post regadenoson infusion. Medication Given: Time Medication Dose Units Route Findings: Stress Note * Resting ECG demonstrated normal sinus rhythm. * No baseline arrhythmias were noted. * Pharmacologic stress ECG is negative for ischemia at level of heart rate achieved. * No arrhythmias were noted during stress. * Patient had no chest pain during stress. * Normal hemodynamic responses to pharmacologic stress. Study Quality * Study quality is good. Gated EF % * Gated EF = 81%. Left Ventricle * The left ventricle is not dilated. LVEDV = 62 mL. NORMALS * Normal wall motion. * Normal Segmental Perfusion in rest. * Normal segmental perfusion in stress. TID * No evidence of transient ischemic dilatation. TID ratio = 0.92. Lung Uptake * There is no evidence of increase lung uptake. Updated by Williams Ngo DO, FACWayne, JASMEET, SHELIA on 12/29/2016 2:07:54 PM
--- NOTE | 2016-12-29 15:38 | Discharge Summary ---
Date of Encounter: 12/29/16 Time of Encounter: 13:20 - Discharge Diagnosis (1) Chest pain Priority: Primary Status: Acute Qualifiers: Chest pain type: unspecified Qualified Code(s): R07.9 - Chest pain, unspecified (2) CAD (coronary artery disease) Priority: Secondary Status: Chronic Qualifiers: Coronary Disease-Associated Artery/Lesion type: [place] artery [place] vs. transplanted heart: [place] heart Associated angina: without angina Qualified Code(s): I25.10 - Atherosclerotic heart disease of [place] coronary artery without angina pectoris (3) Diabetes Priority: Secondary Status: Chronic Qualifiers: Diabetes mellitus type: type 2 Diabetes mellitus complication status: with neurologic complications Diabetes mellitus complication detail: with unspecified neuropathy Diabetes mellitus computer terminal operator insulin use: without fdc use Qualified Code(s): E11.40 - Type 2 diabetes mellitus with diabetic neuropathy, unspecified (4) HTN (hypertension) Priority: Secondary Status: Chronic Qualifiers: Hypertension type: essential hypertension Qualified Code(s): I10 - Essential (primary) hypertension (5) Morbid obesity with BMI of 40.0-44.9, adult Priority: Secondary Status: Chronic - Discharge Medications Prescriptions: Aspirin 81 mg PO DAILY 30 Days Metoprolol [Lopressor] 25 mg PO BID 30 Days Simvastatin [Zocor] 40 mg PO HS 30 Days Home Medications: Alendronate Sodium [Fosamax] 70 mg PO QWEEK 12/27/16 [History] Amitriptyline [Elavil] 10 mg PO HS 12/27/16 [History] Citalopram Hydrobromide [Citalopram HBr] 10 mg PO DAILY 12/27/16 [History] Furosemide [Lasix] 40 mg PO DAILY 12/27/16 [History] Gabapentin [Neurontin] 300 mg PO TID 12/27/16 [History] Glimepiride [Amaryl] 4 mg PO QAM 12/27/16 [History] Loratadine [Claritin] 10 mg PO DAILY 12/27/16 [History] Losartan Potassium [Cozaar] 100 mg PO DAILY 12/27/16 [History] Metformin [Glucophage] 500 mg PO BIDWM 12/27/16 [History] Multivitamin [Multi-Day Vitamins] 1 each PO DAILY 12/27/16 [History] Naproxen Sodium [Aleve] 220 mg PO Q12H 12/27/16 [History] Oxycodone HCl/Acetaminophen [Percocet 5-325 mg Tablet] 1 each PO BID PRN [History] Potassium Chloride [K-Tab ER] 20 meq PO DAILY 12/27/16 [History] Sucralfate [Carafate] 1 gm PO 0730,1630 12/27/16 [History] Vit C/Vit E/Lutein/Min/[place]-3 [Ocuvite Softgel] 1 each PO DAILY 12/27/16 [ History] Aspirin 81 mg PO DAILY 30 Days 12/29/16 [Rx] Metoprolol [Lopressor] 25 mg PO BID 30 Days 12/29/16 [Rx] Simvastatin [Zocor] 40 mg PO HS 30 Days 12/29/16 [Rx] Allergies/Adverse Reactions: Allergies latex Allergy (Verified 01/13/16 12:26) Rash adhesive Adverse Reaction (Verified 12/27/16 22:36) Rash modafinil [From Provigil] Adverse Reaction (Verified 12/27/16 22:36) Unkown Penicillins [PCN] Adverse Reaction (Verified 01/13/16 12:26) Rash Procedures/tests Complete & Pending: Procedures Performed prior 72 hours Category Date Time Status NM bill perf SPECT multi [NM] Routine Exams 12/28/16 02:06 Taken EV echocardiogram Routine Y 12/28/16 02:04 Completed SP pharm nuclear stress Routine Y 12/28/16 02:04 Completed Date of admission: 12/27/16 22:56 Primary care physician: Rosita Swain CNP Consults: 12/28/16 03:14 Consult to Cardiology [CONS] Routine Comment: Consulting Provider: [facility] Reason for Consult: CP, last cardiology workup (cath, stress, echo) 2010 - results listed in HPI Call Completed: No Discharging clinician: Mitchell Wallis Anticipated date of discharge: 12/29/16 - Patient Status Disposition: Home, Self-Care Condition: Good - Discharge Instructions Follow Up With: Rosita wSain CNP [Primary Care Provider] - Interval History: No complaints Normal stress test. Hospital course: Ms. Silverio is a 86 year old female with medical history significant for non- obstructive CAD was admitted with atypical brief episode of chest pain. Serial troponin negative. TTE shows EF 70-75%, mild diastolic dysfunction, no significant valvular disease. Stress test was non-ischemic. She is discharged home on Continue asa, statin, and bb. F/u with [facility] will be made in 2 weeks. - Time Spent with Patient Total time spent providing and/or coordinating discharge services: - Constitutional Vitals: Temp Pulse Resp BP Pulse Ox 97.9 F 55 16 119/56 93 L 12/29/16 11:30 12/29/16 11:30 12/29/16 11:30 12/29/16 11:30 12/29/16 11:30 General appearance: Present: A&O X 3, morbidly obese, pleasant, no acute distress, answers questions appropriately Exam: Elderly. Not in distress Not pale, anicteric, afebrile, acyanotic. Chest is CTAB Heart: RRR, HS1/2, no murmur Abdomen: soft, non-tender, no masses. CROSSBOW MAKER: AAO X 3, no gross focal neurological deficitis Extremities: No pedal edema, normal pedal pulses, no calf tenderness.
== END 2016-12-29 16:25 | disposition home or self-care (01) ==
LOC: 3BNU 19:44 → EMEROO 19:44 → 3BNU 23:03
PROVIDERS: ADMIT Hospitalist; ATTEND Nurse Practitioner Family

== ENCOUNTER 2018-05-20 16:05 | Observation (INO) ==
--- NOTE | 2018-05-20 16:24 | Emergency Department Note ---
Disposition Clinical Impression: Hematoma, Neck pain Chest pain Qualifiers: Chest pain type: precordial pain Qualified Code(s): R07.2 - Precordial pain Fall Qualifiers: Encounter type: initial encounter Qualified Code(s): W19.XXXA - Unspecified fall, initial encounter Disposition: Home, Self-Care Condition: Good Instructions: Chest Pain (ED), Fall Prevention for Older Adults (ED), Cervical Sprain (ED) Referrals: Adrienne Duenas DRIVER EDUCATION ROAD INSTRUCTOR [Primary Care Provider] - Forms: ED Satisfaction Letter Time of Disposition: 18:18 Chest Pain HPI - General Chief Complaint: ED Chest Pain Stated Complaint: Fall Time Seen by Provider: 05/20/18 16:08 Source: patient, EMS Mode of arrival: EMS Limitations: no limitations Vital Signs Reviewed: Yes Nursing Notes Reviewed: Yes - History of Present Illness HPI Narrative: This is an 88-year-old female states that she was walking in her house not using her walker about 2 hours prior to arrival when she fell to the floor. She states she broke cardboard holding together a case soft drink cans when she hit it with her head during the fall. She complains of headache at the left superior occipital region, neck pain, right scapular pain, and left-sided chest pain. The Chest pain was not present prior to the fall. Pt complaint: chest pain - Related Data Home Medications Medication Instructions Recorded Confirmed Alendronate Sodium [Fosamax] 70 mg PO QWEEK 12/27/16 12/27/16 Amitriptyline [Elavil] 10 mg PO HS 12/27/16 12/27/16 Citalopram Hydrobromide 10 mg PO DAILY 12/27/16 12/27/16 [Citalopram HBr] Furosemide [Lasix] 40 mg PO DAILY 12/27/16 12/27/16 Gabapentin [Neurontin] 300 mg PO TID 12/27/16 12/27/16 Glimepiride [Amaryl] 4 mg PO QAM 12/27/16 12/27/16 Loratadine [Claritin] 10 mg PO DAILY 12/27/16 12/27/16 Losartan Potassium [Cozaar] 100 mg PO DAILY 12/27/16 12/27/16 Multivitamin [Multi-Day Vitamins] 1 each PO DAILY 12/27/16 12/27/16 Naproxen Sodium [Aleve] 220 mg PO Q12H 12/27/16 12/27/16 Oxycodone HCl/Acetaminophen 1 each PO BID PRN 12/27/16 12/27/16 [Percocet 5-325 mg Tablet] Potassium Chloride [K-Tab ER] 20 meq PO DAILY 12/27/16 12/27/16 Sucralfate [Carafate] 1 gm PO 0730,1630 12/27/16 12/27/16 Vit C/Vit E/Lutein/Min/[place]-3 1 each PO DAILY 12/27/16 12/27/16 [Ocuvite Softgel] metFORMIN [Glucophage] 500 mg PO BIDWM 12/27/16 12/27/16 Previous Rx's Medication Instructions Recorded Aspirin 81 mg PO DAILY 30 Days tab.chew 12/29/16 Metoprolol [Lopressor] 25 mg PO BID 30 Days tablet 12/29/16 Simvastatin [Zocor] 40 mg PO HS 30 Days tablet 12/29/16 Lidocaine Patch [Lidoderm 5% patch] 1 each TP DAILY PRN #3 adh..patch 05/28/17 Allergies Allergy/AdvReac Type Severity Reaction Status Date / Time latex Allergy Rash Verified 01/13/16 12:26 adhesive AdvReac Rash Verified 12/27/16 22:36 modafinil [From Provigil] AdvReac Unkown Verified 12/27/16 22:36 Penicillins [PCN] AdvReac Rash Verified 01/13/16 12:26 All systems ED: reviewed and negative except as stated. Constitutional: Denies: fever, chills, weakness, weight change Eyes: Denies: eye pain, eye discharge, vision change Cardiovascular: Reports: chest pain Respiratory: Denies: cough, dyspnea, wheezes, hemoptysis, stridor Gastrointestinal: Denies: abdominal pain, nausea, vomiting, diarrhea, constipation, hematemesis, melena, hematochezia Musculoskeletal: Reports: neck pain, arthralgia Integumentary: Denies: rash, abrasion, lesions Neurological: Denies: headache, weakness, numbness, paresthesias, confusion, abnormal gait, vertigo Psychiatric: Denies: anxiety, depression, suicidal thoughts, homicidal thoughts , auditory hallucinations, visual hallucinations Endocrine: Denies: fatigue Hematological/Lymphatic: Denies: easy bleeding, easy bruising Allergic/Immunologic: Denies: facial swelling, urticaria Chest Pain PMH - Past Medical History Medical history: Reports: arthritis, coronary artery disease, diabetes, GERD, hyperlipidemia, hypertension, other Surgical history: Reports: appendectomy, cataract, cholecystectomy, herniorrhaphy, hysterectomy, knee replacement Psychiatric history: Reports: anxiety, depression - Social History Smoking Status: Never smoker Alcohol use: Reports: occasionally Drug use: Reports: none Physical Exam - General Limitations: no limitations General appearance: alert, in no apparent distress - Head Head exam: other (There is a 3 cm tender cephalohematoma at the left superior occipital scalp, no associated laceration) - Eye Eye exam: Present: normal appearance, PERRL, EOMI - Chest Chest inspection: Present: tenderness (There is midline cervical tenderness across the entire cervical spine), other (There is tenderness at the superior aspect of the right scapula) - Respiratory Respiratory exam: Present: normal lung sounds bilaterally - Cardiovascular Cardiovascular exam: Present: regular rate, normal rhythm, normal heart sounds - Abdominal Exam Abdominal exam: Present: soft, Non-Tender. Absent: tenderness, distention, guarding, rebound, rigidity - Extremities Exam Extremities exam: Present: normal inspection, pedal edema (1+ pedal edema to the mid calves) - Back Exam Back exam: Present: normal inspection. Absent: tenderness - Neurological Exam Neurological exam: Present: alert, oriented X3 - Psychiatric Psychiatric exam: Present: normal affect, normal mood - Skin Skin exam: Present: warm, dry, intact, normal color Course Vital Signs Temperature 98.4 F 05/20/18 16:10 Pulse Rate 86 05/20/18 16:10 Respiratory Rate 20 05/20/18 16:10 Blood Pressure 182/99 05/20/18 16:10 O2 Sat by Pulse Oximetry 92 05/20/18 16:10 Temperature 98.4 F 05/20/18 16:10 Pulse Rate 86 05/20/18 16:10 Respiratory Rate 20 05/20/18 16:10 Blood Pressure 182/99 05/20/18 16:10 O2 Sat by Pulse Oximetry 94 05/20/18 16:42 Oxygen Delivery Oxygen Delivery Room Air Chest Pain - MDM Narrative Medical decision making narrative: This is an 88-year-old female with a fall from standing and neck pain and a cephalhematoma as a result. She also complained of chest pain. Her initial EKG and troponin were not concerning. I offered her observation in the hospital for the completion of a chest pain rule out, and she firmly declined. She will follow-up with her regular doctor. - Lab Data Lab results reviewed: Yes I reviewed the patient's lab results. Lab results narrative: Blood tests were unremarkable, including a low troponin Result diagrams: 05/20/18 16:36 05/20/18 16:36 Lab Results 05/20/18 05/20/18 Range/Units 16:36 16:36 WBC 10.0 (4.3-11.1) K/mcL RBC 4.17 (3.82-4.97) M/mcL Hgb 12.4 (11.5-15.4) g/dL Hct 38.0 (35.3-44.9) % MCV 91.1 (83.0-100.0) fL MCH 29.7 (28.0-33.3) pg MCHC 32.6 (31.6-35.5) g/dL RDW 14.1 (11.5-14.5) % Plt Count 193 (140-400) K/mcL MPV 10.8 (9.4-12.4) fL Immature Gran % 0.3 (0-4) % Seg Neutrophils % 56.9 % Lymphocytes % 29.9 % Monocytes % 7.0 % Eosinophils % 5.2 % Basophils % 0.7 % Neutrophils # 5.7 (1.6-8.9) K/mcL Lymphocytes # 3.0 (0.6-4.6) K/mcL Monocytes # 0.7 (0.0-1.3) K/mcL Eosinophils # 0.5 (0.0-0.6) K/mcL Basophils # 0.1 (0.0-0.2) K/mcL Sodium 140 (136-145) mEq/L Potassium 4.0 (3.5-5.1) mEq/L Chloride 104 (98-107) mEq/L Carbon Dioxide 31 H (23-29) mEq/L BUN 15 (8-23) mg/dL Creatinine 0.66 (0.60-1.20) mg/dL Est GFR ( Amer) > 60 (> 60) Est GFR (Non-Af Amer) > 60 (> 60) BUN/Creatinine Ratio 23 (6-26) Glucose 149 H (70-105) mg/dL Calculated Osmolality 294 (280-300) Calcium 9.4 (8.6-10.3) mg/dL Troponin I < 0.03 (< 0.04) ng/mL - Radiology Data Radiology results reviewed: Yes I reviewed the patient's radiology results. CT brain was unremarkable CT cervical spine was unremarkable Chest x-ray was unremarkable - EKG Data EKG attestation: Yes I reviewed and interpreted this EKG. EKG results narrative: ECG shows a sinus rhythm, 67 bpm, with PACs; normal intervals, normal axis, no ST or T-wave abnormalities
[2018-05-20 17:08] LABS: Basophils # 0.1 K/mcL (0.0-0.2); Basophils % 0.7 %; Eosinophils # 0.5 K/mcL (0.0-0.6); Eosinophils % 5.2 %; Hemoglobin 12.4 g/dL (11.5-15.4); Immature Granulocytes % 0.3 % (0-4); Lymphocytes % 29.9 %; Mean Corpuscular HGB Conc 32.6 g/dL (31.6-35.5); Mean Corpuscular Hemoglobin 29.7 pg (28.0-33.3); Mean Corpuscular Volume 91.1 fL (83.0-100.0); Mean Platelet Volume 10.8 fL (9.4-12.4); Monocytes # 0.7 K/mcL (0.0-1.3); Neutrophils # 5.7 K/mcL (1.6-8.9); Platelet Count 193 K/mcL (140-400); Red Blood Count 4.17 M/mcL (3.82-4.97); Red Cell Distribution Width 14.1 % (11.5-14.5); Segmented Neutrophils % 56.9 %
[2018-05-20 17:24] LABS: BUN/Creatinine Ratio 23 (6-26); Blood Urea Nitrogen 15 mg/dL (8-23); Calcium 9.4 mg/dL (8.6-10.3); Carbon Dioxide 31 mEq/L (23-29); Chloride 104 mEq/L (98-107); Glucose 149 mg/dL (70-105); Osmolality,Calculated 294 (280-300); Sodium 140 mEq/L (136-145); Troponin I < 0.03 ng/mL (< 0.04); eGFR For Non-African Americans > 60 (> 60)
[2018-05-20] MEDS ORDERED: Nitroglycerin 0.4 MG TAB.SUBL SL PRN (18:34)
[2018-05-20] MEDS ORDERED: Furosemide 20 MG/2 ML VIAL IVP ONE (18:37)
--- NOTE | 2018-05-20 18:44 | Emergency Department Note ---
Disposition Clinical Impression: Hematoma, Neck pain Chest pain Qualifiers: Chest pain type: precordial pain Qualified Code(s): R07.2 - Precordial pain Fall Qualifiers: Encounter type: initial encounter Qualified Code(s): W19.XXXA - Unspecified fall, initial encounter Hypertension Qualifiers: Hypertension type: essential hypertension Qualified Code(s): I10 - Essential ( primary) hypertension Pulmonary edema Qualifiers: Chronicity: acute Qualified Code(s): J81.0 - Acute pulmonary edema Disposition: Admitted As Inpatient Condition: Good Instructions: Chest Pain (ED), Fall Prevention for Older Adults (ED), Cervical Sprain (ED) Referrals: Adrienne Duenas CNP [Primary Care Provider] - Forms: ED Satisfaction Letter Time of Disposition: 18:45 General Adult HPI - General Chief complaint: ED Chest Pain Stated complaint: Fall Time Seen by Provider: 05/20/18 16:08 Source: patient, EMS Mode of arrival: EMS Limitations: no limitations - History of Present Illness HPI Narrative: This is an addendum to the prior note. The patient initially insisted on discharge, became short of breath while walking to the restroom and appears appropriate for admission to the hospital. As noted, the chest x-ray did show mild possible pulmonary edema. This note is an update to the previous one and is only being used for disposition. Pain Scale: 5 - Related Data Home Medications Medication Instructions Recorded Confirmed Alendronate Sodium [Fosamax] 70 mg PO QWEEK 12/27/16 12/27/16 Amitriptyline [Elavil] 10 mg PO HS 12/27/16 12/27/16 Citalopram Hydrobromide 10 mg PO DAILY 12/27/16 12/27/16 [Citalopram HBr] Furosemide [Lasix] 40 mg PO DAILY 12/27/16 12/27/16 Gabapentin [Neurontin] 300 mg PO TID 12/27/16 12/27/16 Glimepiride [Amaryl] 4 mg PO QAM 12/27/16 12/27/16 Loratadine [Claritin] 10 mg PO DAILY 12/27/16 12/27/16 Losartan Potassium [Cozaar] 100 mg PO DAILY 12/27/16 12/27/16 Multivitamin [Multi-Day Vitamins] 1 each PO DAILY 12/27/16 12/27/16 Naproxen Sodium [Aleve] 220 mg PO Q12H 12/27/16 12/27/16 Oxycodone HCl/Acetaminophen 1 each PO BID PRN 12/27/16 12/27/16 [Percocet 5-325 mg Tablet] Potassium Chloride [K-Tab ER] 20 meq PO DAILY 12/27/16 12/27/16 Sucralfate [Carafate] 1 gm PO 0730,1630 12/27/16 12/27/16 Vit C/Vit E/L[place]in/Min/[place]-3 1 each PO DAILY 12/27/16 12/27/16 [Ocuvite Softgel] metFORMIN [Glucophage] 500 mg PO BIDWM 12/27/16 12/27/16 Previous Rx's Medication Instructions Recorded Aspirin 81 mg PO DAILY 30 Days tab.chew 12/29/16 Metoprolol [Lopressor] 25 mg PO BID 30 Days tablet 12/29/16 Simvastatin [Zocor] 40 mg PO HS 30 Days tablet 12/29/16 Lidocaine Patch [Lidoderm 5% patch] 1 each TP DAILY PRN #3 adh..patch 05/28/17 Allergies Allergy/AdvReac Type Severity Reaction Status Date / Time latex Allergy Rash Verified 01/13/16 12:26 adhesive AdvReac Rash Verified 12/27/16 22:36 modafinil [From Provigil] AdvReac Unkown Verified 12/27/16 22:36 Penicillins [PCN] AdvReac Rash Verified 01/13/16 12:26 Constitutional: Denies: fever, chills, weakness, weight change Eyes: Denies: eye pain, eye discharge, vision change Cardiovascular: Reports: chest pain Respiratory: Denies: cough, dyspnea, wheezes, hemoptysis, stridor Gastrointestinal: Denies: abdominal pain, nausea, vomiting, diarrhea, constipation, hematemesis, melena, hematochezia Musculoskeletal: Reports: neck pain, arthralgia Integumentary: Denies: rash, abrasion, lesions Neurological: Denies: headache, weakness, numbness, paresthesias, confusion, abnormal gait, vertigo Psychiatric: Denies: anxiety, depression, suicidal thoughts, homicidal thoughts , auditory hallucinations, visual hallucinations Endocrine: Denies: fatigue Hematological/Lymphatic: Denies: easy bleeding, easy bruising Allergic/Immunologic: Denies: facial swelling, urticaria Past Medical History - Past Medical History Medical history: Reports: arthritis, coronary artery disease, diabetes, GERD, hyperlipidemia, hypertension, other Surgical history: Reports: appendectomy, cataract, cholecystectomy, herniorrhaphy, hysterectomy, knee replacement Psychiatric history: Reports: anxiety, depression - Social History Smoking Status: Never smoker Smokeless Tobacco Status: No Alcohol use: Reports: occasionally Drug use: Reports: none Physical Exam - General Limitations: no limitations General appearance: alert, in no apparent distress Course Vital Signs Temperature 98.4 F 05/20/18 16:10 Pulse Rate 86 05/20/18 16:10 Respiratory Rate 20 05/20/18 16:10 Blood Pressure 182/99 05/20/18 16:10 O2 Sat by Pulse Oximetry 92 05/20/18 16:10 Temperature 98.4 F 05/20/18 16:10 Pulse Rate 82 05/20/18 18:22 Respiratory Rate 18 05/20/18 18:22 Blood Pressure 194/120 05/20/18 18:22 O2 Sat by Pulse Oximetry 93 05/20/18 18:22 Oxygen Delivery Oxygen Delivery Nasal Cannula Medical Decision Making - [facility] Narrative Medical decision making narrative: This is an 88-year-old female with mild pulmonary edema on chest x-ray, a negative initial acute coronary syndrome evaluation, and hypertension. She is willing to stay in the hospital to get a further evaluation and medication adjustment so that she has a better functional capacity. I discussed her case with the on-call hospitalist, who accepted her for admission. Prior to admission, she was administered nitroglycerin, enalaprilat, and a low-dose of furosemide to begin treatment for her pulmonary edema. - Lab Data Result diagrams: 05/20/18 16:36 05/20/18 16:36 Lab Results 05/20/18 05/20/18 Range/Units 16:36 16:36 WBC 10.0 (4.3-11.1) K/mcL RBC 4.17 (3.82-4.97) M/mcL Hgb 12.4 (11.5-15.4) g/dL Hct 38.0 (35.3-44.9) % MCV 91.1 (83.0-100.0) fL MCH 29.7 (28.0-33.3) pg MCHC 32.6 (31.6-35.5) g/dL RDW 14.1 (11.5-14.5) % Plt Count 193 (140-400) K/mcL MPV 10.8 (9.4-12.4) fL Immature Gran % 0.3 (0-4) % Seg Neutrophils % 56.9 % Lymphocytes % 29.9 % Monocytes % 7.0 % Eosinophils % 5.2 % Basophils % 0.7 % Neutrophils # 5.7 (1.6-8.9) K/mcL Lymphocytes # 3.0 (0.6-4.6) K/mcL Monocytes # 0.7 (0.0-1.3) K/mcL Eosinophils # 0.5 (0.0-0.6) K/mcL Basophils # 0.1 (0.0-0.2) K/mcL Sodium 140 (136-145) mEq/L Potassium 4.0 (3.5-5.1) mEq/L Chloride 104 (98-107) mEq/L Carbon Dioxide 31 H (23-29) mEq/L BUN 15 (8-23) mg/dL Creatinine 0.66 (0.60-1.20) mg/dL Est GFR ( Amer) > 60 (> 60) Est GFR (Non-Af Amer) > 60 (> 60) BUN/Creatinine Ratio 23 (6-26) Glucose 149 H (70-105) mg/dL Calculated Osmolality 294 (280-300) Calcium 9.4 (8.6-10.3) mg/dL Troponin I < 0.03 (< 0.04) ng/mL Critical Care Time Total Critical Care Time: 25
[2018-05-20] MEDS ORDERED: Naloxone 0.4 MG/ML INJ IVP PRN (19:17)
[2018-05-20] MEDS ORDERED: Dextrose Gel 15 GM/37.5 ML TUBE PO PRN ×2 (19:23)
[2018-05-20] MEDS ORDERED: D5% in Water 1,000 ML IVC PRN (19:23)
[2018-05-20] MEDS ORDERED: *HR* Dextrose 50 % in Water (Syg) 50 ML SYRINGE IVP PRN (19:23)
[2018-05-20] MEDS ORDERED: Levofloxacin 750 MG/150 ML 750 MG/150 ML BAG IVPB SCH (20:00)
[2018-05-20] MEDS ORDERED: amLODIPine 5 MG TABLET PO SCH (20:00)
[2018-05-20 20:01] LABS: Estimated Average Glucose 143 mg/dl; Hemoglobin A1C 6.6 %
--- NOTE | 2018-05-20 20:34 | Internal Med History&Physical ---
Date of Encounter: 05/21/18 Time of Encounter: 20:30 Internal Medicine - H&P: HPI Chief complaint: Fall at home, shortness of breath History of present illness: Ms. Silverio is a 88 year old female with pmh of hypertension, diabetes, hyperlipidemia presenting with complaints of fall today. Patient was navigating through the kitchen and noted she was talking on the phone when she fell. she does not recall feeling light headed and may have stumbled. She had no loss of consciousness. She began to experience generalized body pain s/p fall and that' s why she came to the ER. She was treated in the ER and with CT head and cervical spine showing no acute abnormalities was supposed to be discharged but , she was noted to be hypoxic when she walked with her sats at 86% in room air, BP was also elevated in the 200s. Past Med Surg Social Fam HX - Past Medical History Medical history: arthritis, coronary artery disease, diabetes, GERD, hyperlipidemia, hypertension, other Additional medical history: HEART DISEASE, Psychiatric history: anxiety, depression - Past Surgical History Surgical History: appendectomy, cataract, cholecystectomy, herniorrhaphy, hysterectomy, knee replacement Additional surgical history: bilateral knee replacements, EAR AND EYE SURGERY - Social History Smoking Status: Never smoker Smokeless Tobacco Status: No Alcohol use: occasionally Drug use: none - Family History Mother Adopted: No Family Member Ethnicity: Non- Living Status: Hx Family Cardiac Disorders: Yes (MO) Hx Family Cancer: Yes (BREAST) Hx Family GI Disorders: Yes Hx Family Endocrine Disorder: Yes (DM) Hx Family Neuromuscular Disorders: No Hx Family Neurologic Disorders: Yes (CVA) Hx Family HEENT Disorders: Yes (SX) Hx Family Autoimmune Disorders: No Internal Medicine - H&P: Meds Amitriptyline [Elavil] 10 mg PO HS 12/27/16 [History] Citalopram Hydrobromide [Citalopram HBr] 10 mg PO DAILY 12/27/16 [History] Furosemide [Lasix] 40 mg PO DAILY 12/27/16 [History] Gabapentin [Neurontin] 300 mg PO QAM 12/27/16 [History] Glimepiride [Amaryl] 4 mg PO QAM 12/27/16 [History] Loratadine [Claritin] 10 mg PO DAILY 12/27/16 [History] Losartan Potassium [Cozaar] 100 mg PO DAILY 12/27/16 [History] Naproxen Sodium [Aleve] 220 mg PO Q12H 12/27/16 [History] Potassium Chloride [K-Tab ER] 20 meq PO DAILY 12/27/16 [History] Sucralfate [Carafate] 1 gm PO 0730,1630 12/27/16 [History] metFORMIN [Glucophage] 500 mg PO BIDWM 12/27/16 [History] Aspirin 81 mg PO DAILY 30 Days tab.chew 12/29/16 [Rx] Simvastatin [Zocor] 40 mg PO HS 30 Days tablet 12/29/16 [Rx] Alendronate Sodium [Fosamax] 70 mg PO QWEEK 05/20/18 [History] Gabapentin [Neurontin] 600 mg PO QPM 05/20/18 [History] Metoprolol Succinate [Toprol Xl] 25 mg PO BID 05/20/18 [History] Multivitamin [One Daily Essential] 1 tab PO DAILY 05/20/18 [History] 3 Allergy/AdvReac Type Severity Reaction Status Date / Time latex Allergy Rash Verified 01/13/16 12:26 adhesive AdvReac Rash Verified 12/27/16 22:36 modafinil [From Provigil] AdvReac Unkown Verified 12/27/16 22:36 Penicillins [PCN] AdvReac Rash Verified 01/13/16 12:26 All Systems PM: A 10-system review of systems was performed and is negative for pertinent findings except as documented above in the HPI. - Constitutional Constitutional: no chills, no fever(s), no night sweats - EENT Eyes: no change in vision, no discharge, no pain, no photophobia Ears: no ear discharge, no ear pain, no tinnitus Nose, mouth and throat: no dysphagia, no nasal discharge, no neck pain, no sore throat - Cardiovascular Cardiovascular ROS IM: no chest pain, no diaphoresis, no dyspnea, no lightheadedness, no palpitations, no syncope - Respiratory Respiratory: dyspnea, no cough, no wheezing, no excessive phlegm production - Gastrointestinal Gastrointestinal: no abdominal pain, no diarrhea, no hematemesis, no hematochezia, no melena, no nausea, no vomiting - Genitourinary Genitourinary: no change in urinary stream, no dysuria, no flank pain, no hematuria - Musculoskeletal Musculoskeletal ROS IM: no numbness, no tingling - Integumentary Integumentary IM: no rash, no unusual bruising - Neurological Neurological ROS: no confusion, no convulsions, no focal weakness, no numbness, no tingling, no tremor(s) - Hematologic/Lymphatic Hematologic/Lymphatic: no easy bruising - Constitutional Vitals: Temp Pulse Resp BP Pulse Ox 98.4 F 82 20 204/86 93 05/20/18 16:10 05/20/18 18:22 05/20/18 19:34 05/20/18 19:34 05/20/18 18:22 - Head Head exam: Present: atraumatic, normocephalic - Eye Eye exam: Present: PERRL, conjuntiva pink, sclera anicteric Pupils: Present: PERRL - Neck Neck exam general surgery: Present: supple, trachea midline. Absent: lymphadenopathy - Respiratory Respiratory exam: Present: CTAB. Absent: accessory muscle use, rales, rhonchi, wheezes - Cardiovascular Cardiovascular exam: Present: RRR, +S1, +S2. Absent: diastolic murmur, gallop, rubs, systolic murmur - GI/Abdominal GI/Abdominal exam: Present: normal bowel sounds, soft, no peritoneal signs. Absent: distended, tenderness - Extremities Exam Extremities exam: Present: warm, radial pulses palpable and symmetrical. Absent : calf tenderness, cyanotic, pedal edema - Neurological Exam Neurological exam: Present: CN II-XII intact, oriented X3, no focal deficits. Absent: pronater drift, facial droop, speech deficit - Skin Skin exam: Present: dry, intact Internal Med - H&P Results - Labs CBC & Chem 7: 05/21/18 03:50 05/21/18 03:50 - Assessment and plan (1) Acute respiratory failure with hypoxia Current Visit: Yes Status: Acute Assessment and plan: Pt has no history of COPDor home oxygen use. Oxygen sats were 86% on rrom air. CXR shows opacities vs edema. will start on levaquin for community acquired pneumonia, obtain BNP, resume home dose of lasix as patient does not appear fluid overloaded (2) Community acquired pneumonia Current Visit: Yes Status: Acute Assessment and plan: On antibiotics. F/U blood cultures. Monitor O2 sats Qualifiers: Laterality: unspecified laterality Qualified Code(s): J18.9 - Pneumonia, unspecified organism (3) Chest pain Current Visit: Yes Status: Acute Assessment and plan: Gaby jenkins s/p fall. Pt reports generalized body pain. Troponins negative Qualifiers: Chest pain type: precordial pain Qualified Code(s): R07.2 - Precordial pain (4) Diabetes Current Visit: No Status: Chronic Assessment and plan: Continue glipizide and insulin as needed Qualifiers: Diabetes mellitus type: type 2 Diabetes mellitus terminal gauger supervisor insulin use: without jail use Diabetes mellitus complication status: with neurologic complications Diabetes mellitus complication detail: with unspecified neuropathy Qualified Code(s): E11.40 - Type 2 diabetes mellitus with diabetic neuropathy, unspecified (5) Hypertensive urgency Current Visit: Yes Status: Acute Assessment and plan: Received IV enalaprilat in the ER. Start on PRN hydralazine, resume home antihypertensives (6) HTN (hypertension) Current Visit: Yes Status: Chronic Assessment and plan: Resume home meds Qualifiers: Hypertension type: essential hypertension Qualified Code(s): I10 - Essential (primary) hypertension (7) Hematoma Current Visit: Yes Status: Acute Assessment and plan: Stable. Monitor (8) DVT prophylaxis Current Visit: Yes Status: Acute Assessment and plan: scd - Time Spent With Patient Total time spent is greater than 50% in coordination of care (as documented) at patient's floor/unit and/or counseling patient:
[2018-05-20] MEDS: Metoprolol XL (24 HR) Succ 25 MG TAB.ER.24H PO SCH (21:26)
[2018-05-21] MEDS ORDERED: Acetaminophen 325 MG TABLET PO PRN (01:17)
[2018-05-21] MEDS: Insulin LISPRO 300 UNITS/3 ML VIAL SQ SCH ×4 (04:29→17:27)
[2018-05-21 05:03] LABS: Basophils # 0.1 K/mcL (0.0-0.2); Basophils % 0.8 %; Eosinophils # 0.5 K/mcL (0.0-0.6); Eosinophils % 4.6 %; Hematocrit 34.6 % (35.3-44.9); Hemoglobin 11.4 g/dL (11.5-15.4); Immature Granulocytes % 0.1 % (0-4); Lymphocytes # 3.7 K/mcL (0.6-4.6); Lymphocytes % 33.8 %; Mean Corpuscular HGB Conc 32.9 g/dL (31.6-35.5); Mean Corpuscular Hemoglobin 29.9 pg (28.0-33.3); Mean Corpuscular Volume 90.8 fL (83.0-100.0); Neutrophils # 5.6 K/mcL (1.6-8.9); Platelet Count 189 K/mcL (140-400); Red Blood Count 3.81 M/mcL (3.82-4.97); Red Cell Distribution Width 13.9 % (11.5-14.5); Segmented Neutrophils % 51.7 %
[2018-05-21 05:20] LABS: BUN/Creatinine Ratio 21 (6-26); Blood Urea Nitrogen 15 mg/dL (8-23); Calcium 8.9 mg/dL (8.6-10.3); Carbon Dioxide 33 mEq/L (23-29); Chloride 102 mEq/L (98-107); Glucose 149 mg/dL (70-105); Magnesium 1.5 mg/dL (1.6-2.6); Osmolality,Calculated 294 (280-300); Potassium 3.9 mEq/L (3.5-5.1); Sodium 140 mEq/L (136-145); eGFR For Non-African Americans > 60 (> 60)
[2018-05-21] MEDS: Furosemide 40 MG TABLET PO SCH (08:11)
[2018-05-21] MEDS: Metoprolol XL (24 HR) Succ 25 MG TAB.ER.24H PO SCH ×2 (08:11→21:20)
[2018-05-21] MEDS: Sucralfate 1 GM TABLET PO SCH ×2 (08:11→17:27)
[2018-05-21] MEDS: Loratadine 10 MG TABLET PO SCH (08:11)
[2018-05-21] MEDS: *HR* Glimepiride 4 MG TABLET PO SCH (08:11)
[2018-05-21] MEDS: Multivit/Ca/Min/Fe/FA 1 TAB TABLET PO SCH (08:11)
[2018-05-21] MEDS: Aspirin 81 MG TAB.CHEW PO SCH (08:11)
[2018-05-21] MEDS ORDERED: *HR* HYDROcodone/Acet 5/325 mg TABLET PO PRN (11:22)
--- NOTE | 2018-05-21 11:24 | Internal Med Progress Note ---
Hospitalist Progress Note - Encounter Date of Encounter: 05/21/18 Time of Encounter: 11:24 - Subjective Interval History: Patient seen and examined at bedside. Currently denies any chest pain or shortness breath - Exam Vitals: Temp Pulse Resp BP Pulse Ox 97.6 F 63 20 158/74 96 05/21/18 07:29 05/21/18 07:29 05/21/18 07:29 05/21/18 07:29 05/21/18 07:29 Exam: Skin: Free of rash and discoloration. Eyes: Sclera is white. There is no discharge from eyes. ENMT: Oral/pharyngeal mucosa is normal in appearance. There is no discharge from nose or ears. Respiratory: Normal breath sounds with no crackles and wheezes bilaterally. CV: Heart is regular with no gallop or murmur. GI: Abdomen is flat and soft with no palpable mass or visceromegaly. : There is no tenderness in patient's flanks bilaterally. Neuro exam: He has good strength in upper and lower extremities. He has normal eye movements. Psychiatric: He has normal affect. His thought process is appropriate to the situation. - Assessment and Plan (1) Community acquired pneumonia Current Visit: Yes Status: Acute Assessment and Plan: No fever or leukocytosis continue with antibiotics continue with oxygen (2) Acute respiratory failure with hypoxia Current Visit: Yes Status: Acute Assessment and Plan: Pt has no history of COPDor home oxygen use. Oxygen sats were 86% on rrom air. CXR shows opacities vs edema. will start on levaquin for community acquired pneumonia, BNP 173 , resume home dose of lasix as patient does not appear fluid overloaded No fever or white count today oxygen saturations stable on 2 L nasal cannula (3) Chest pain Current Visit: Yes Status: Acute Assessment and Plan: Patient is experiencing extensive [place] pain mostly lower back troponins have been negative we will continue to monitor (4) Diabetes Current Visit: No Status: Chronic Assessment and Plan: Accu-Cheks before meals and at bedtime with sliding scale insulin hold oral medications for now and resume on discharge (5) HTN (hypertension) Current Visit: Yes Status: Chronic Assessment and Plan: Currently controlled we will continue with home medications (6) Hematoma Current Visit: Yes Status: Acute Assessment and Plan: Stable at this will cont to Monitor (7) Hypertensive urgency Current Visit: Yes Status: Acute Assessment and Plan: Received IV enalaprilat in the ER. Currently stable continue with when necessary hydralazine and home medications (8) DVT prophylaxis Current Visit: Yes Status: Acute Assessment and Plan: scd - Time Spent with Patient Total time spent is greater than 50% in coordination of care (as documented) at patient's floor/unit and/or counseling patient: Internal Medicine: Result - Labs CBC & Chem 7: 05/21/18 03:50 05/21/18 03:50 Labs: Short CBC 05/21/18 Range/Units 03:50 WBC 10.9 (4.3-11.1) K/mcL Hgb 11.4 L (11.5-15.4) g/dL Hct 34.6 L (35.3-44.9) % Plt Count 189 (140-400) K/mcL Neutrophils # 5.6 (1.6-8.9) K/mcL BMP 05/21/18 03:50 Sodium 140 Potassium 3.9 Chloride 102 Carbon Dioxide 33 H BUN 15 Creatinine 0.71 Glucose 149 H Calcium 8.9 Consult Discharge Plan - Plan Referrals: Adrienne Duenas, ROAD GRADER [Primary Care Provider] - 06/06/18 10:15 am (1) Community acquired pneumonia Qualifiers: Laterality: unspecified laterality Qualified Code(s): J18.9 - Pneumonia, unspecified organism (3) Chest pain Qualifiers: Chest pain type: precordial pain Qualified Code(s): R07.2 - Precordial pain (4) Diabetes Qualifiers: Diabetes mellitus type: type 2 Diabetes mellitus half-way insulin use: without manager intermediate use Diabetes mellitus complication status: with neurologic complications Diabetes mellitus complication detail: with unspecified neuropathy Qualified Code(s): E11.40 - Type 2 diabetes mellitus with diabetic neuropathy, unspecified (5) HTN (hypertension) Qualifiers: Hypertension type: essential hypertension Qualified Code(s): I10 - Essential (primary) hypertension
--- NOTE | 2018-05-21 20:24 | Electrocardiograph Report ---
[address] [place] [address] Test Date: 2018-05-20 Pat Name: Carole Manager Balance Department: [id number] Room: 3B34 Gender: Selling Specialist: : 1930 Requested By: Anuel Kim Order Number: [id number] Reading MD: Pushpa Cox Measurements Intervals [place] Rate: 67 P: AR: 0 QRS: 9 QRSD: 84 T: 16 QT: 407 QTc: 422 Interpretive Statements SINUS BRADYCARDIA WITH FIRST DEGREE AVB PREMATURE ATRIAL COMPLEXES LOW QRS VOLTAGE IN PRECORDIAL LEADS [QRS DEFLECTION < 1.0 mV IN CHEST LEADS] POSSIBLE ANTERIOR MYOCARDIAL INFARCTION [30 ms Q WAVE IN V3/V4, OR R < 0.2 mV IN V4], PROBABLY OLD Electronically Signed On 05-21-2018 17:05:09 EDT by Pushpa Cox
[2018-05-21 21:47] LABS: Acinetobacter baumannii by PCR Not Detected (Not Detect); Candida albicans by PCR Not Detected (Not Detect); Candida glabrata by PCR Not Detected (Not Detect); Candida krusei by PCR Not Detected (Not Detect); Candida parapsilosis by PCR Not Detected (Not Detect); Candida tropicalis by PCR Not Detected (Not Detect); Enterobacter cloacae Cmplx PCR Not Detected (Not Detect); Enterobacteriaceae by PCR Not Detected (Not Detect); Enterococcus by PCR Not Detected (Not Detect); Escherichia coli by PCR Not Detected (Not Detect); Klebsiella oxytoca by PCR Not Detected (Not Detect); Klebsiella pneumoniae by PCR Not Detected (Not Detect); Proteus by PCR Not Detected (Not Detect); Pseudomonas aeruginosa by PCR Not Detected (Not Detect); Serratia marcescens by PCR Not Detected (Not Detect); Staphylococcus aureus by PCR Not Detected (Not Detect); Staphylococcus by PCR DETECTED (Not Detect); Streptococcus agalactiae(B)PCR Not Detected (Not Detect); Streptococcus by PCR Not Detected (Not Detect); Streptococcus pneumoniae PCR Not Detected (Not Detect); Streptococcus pyogenes (A) PCR Not Detected (Not Detect); blaKPC Carbapenem-Resist Gene Not Detected (Not Detect); mecA Methicillin-Resist Gene DETECTED (Not Detect); vanA/B Vancomycin-Resist Genes Not Detected (Not Detect)
[2018-05-22 06:34] LABS: Basophils # 0.1 K/mcL (0.0-0.2); Basophils % 0.6 %; Eosinophils # 0.5 K/mcL (0.0-0.6); Eosinophils % 4.5 %; Hematocrit 34.4 % (35.3-44.9); Hemoglobin 11.4 g/dL (11.5-15.4); Immature Granulocytes % 0.3 % (0-4); Lymphocytes # 3.4 K/mcL (0.6-4.6); Lymphocytes % 34.2 %; Mean Corpuscular HGB Conc 33.1 g/dL (31.6-35.5); Mean Corpuscular Volume 90.5 fL (83.0-100.0); Mean Platelet Volume 11.3 fL (9.4-12.4); Monocytes % 9.8 %; Neutrophils # 5.1 K/mcL (1.6-8.9); Platelet Count 192 K/mcL (140-400); Red Cell Distribution Width 14.1 % (11.5-14.5); Segmented Neutrophils % 50.6 %
[2018-05-22 06:52] LABS: BUN/Creatinine Ratio 19 (6-26); Blood Urea Nitrogen 12 mg/dL (8-23); Calcium 8.7 mg/dL (8.6-10.3); Carbon Dioxide 29 mEq/L (23-29); Chloride 102 mEq/L (98-107); Glucose 124 mg/dL (70-105); Magnesium 1.7 mg/dL (1.6-2.6); Osmolality,Calculated 287 (280-300); Sodium 138 mEq/L (136-145); eGFR For Non-African Americans > 60 (> 60)
[2018-05-22] MEDS ORDERED: Levofloxacin 750 MG/150 ML 750 MG/150 ML BAG IVPB SCH (09:00)
[2018-05-22] MEDS: Sucralfate 1 GM TABLET PO SCH ×2 (09:20→17:18)
[2018-05-22] MEDS: Loratadine 10 MG TABLET PO SCH (09:21)
[2018-05-22] MEDS: *HR* Glimepiride 4 MG TABLET PO SCH (09:21)
[2018-05-22] MEDS: Aspirin 81 MG TAB.CHEW PO SCH (09:21)
[2018-05-22] MEDS: Multivit/Ca/Min/Fe/FA 1 TAB TABLET PO SCH (09:21)
[2018-05-22] MEDS: Furosemide 40 MG TABLET PO SCH (09:22)
[2018-05-22] MEDS: Metoprolol XL (24 HR) Succ 25 MG TAB.ER.24H PO SCH ×2 (09:22→20:24)
[2018-05-22] MEDS: Insulin LISPRO 300 UNITS/3 ML VIAL SQ SCH ×3 (09:30→17:11)
--- NOTE | 2018-05-22 10:20 | Internal Med Progress Note ---
Hospitalist Progress Note - Encounter Date of Encounter: 05/22/18 Time of Encounter: 10:20 - Subjective Interval History: Patient seen and examined at bedside. Currently denies any chest pain or shortness breath denies any pain or discomfort at this time - Exam Vitals: Temp Pulse Resp BP Pulse Ox 98.0 F 66 14 139/77 97 05/22/18 07:40 05/22/18 07:40 05/22/18 07:40 05/22/18 07:40 05/22/18 07:40 Exam: Skin: Free of rash and discoloration. Eyes: Sclera is white. There is no discharge from eyes. ENMT: Oral/pharyngeal mucosa is normal in appearance. There is no discharge from nose or ears. Respiratory: Normal breath sounds with no crackles and wheezes bilaterally. CV: Heart is regular with no gallop or murmur. GI: Abdomen is flat and soft with no palpable mass or visceromegaly. : There is no tenderness in patient's flanks bilaterally. Neuro exam: He has good strength in upper and lower extremities. He has normal eye movements. Examination of his gait is deferrered alert and oriented 3 Psychiatric: He has normal affect. His thought process is appropriate to the situation. - Assessment and Plan (1) Community acquired pneumonia Current Visit: Yes Status: Acute Assessment and Plan: No fever or leukocytosis continue with oxygen as needed and bronchodilators. First set of blood cultures preliminary did show gram-positive cocci Staphylococcus species not S. aureus methicillin-resistant Gene-unsure if this is contaminant we will repeat blood cultures and place patient on vancomycin- awaiting final results (2) Acute respiratory failure with hypoxia Current Visit: Yes Status: Acute Assessment and Plan: Pt has no history of COPDor home oxygen use. Oxygen sats were 86% on rrom air on presentation. CXR shows opacities vs edema. will start on levaquin for community acquired pneumonia, BNP 173 , resume home dose of lasix as patient does not appear fluid overloaded No fever or white count today -oxygen saturations stable on 2 L nasal cannula- attempt to wean oxygen Ambulate patient per nursing encourage patient up to chair 3 times a day (3) Chest pain Current Visit: Yes Status: Acute Assessment and Plan: Patient is experiencing extensive body pain mostly lower back troponins have been negative we will continue to monitor No chest pain voiced today states that back pain has improved with lidocaine patches (4) Diabetes Current Visit: No Status: Chronic Assessment and Plan: Accu-Cheks before meals and at bedtime with sliding scale insulin hold oral medications for now and resume on discharge (5) HTN (hypertension) Current Visit: Yes Status: Chronic Assessment and Plan: Currently controlled we will continue with home medications (6) Hematoma Current Visit: Yes Status: Acute Assessment and Plan: Stable at this time we will cont to Monitor (7) Hypertensive urgency Current Visit: Yes Status: Acute Assessment and Plan: Received IV enalaprilat in the ER. Currently stable continue to monitor -when necessary hydralazine cont home medications (8) DVT prophylaxis Current Visit: Yes Status: Acute Assessment and Plan: scd - Time Spent with Patient Total time spent is greater than 50% in coordination of care (as documented) at patient's floor/unit and/or counseling patient: Internal Medicine: Result - Labs CBC & Chem 7: 05/22/18 05:50 05/22/18 05:50 Labs: Short CBC 05/22/18 Range/Units 05:50 WBC 10.0 (4.3-11.1) K/mcL Hgb 11.4 L (11.5-15.4) g/dL Hct 34.4 L (35.3-44.9) % Plt Count 192 (140-400) K/mcL Neutrophils # 5.1 (1.6-8.9) K/mcL BMP 05/22/18 05:50 Sodium 138 Potassium 4.0 Chloride 102 Carbon Dioxide 29 BUN 12 Creatinine 0.63 Glucose 124 H Calcium 8.7 Consult Discharge Plan - Plan Referrals: Adrienne Duenas, SUPERVISOR [employer] [Primary Care Provider] - 06/06/18 10:15 am (1) Community acquired pneumonia Qualifiers: Laterality: unspecified laterality Qualified Code(s): J18.9 - Pneumonia, unspecified organism (3) Chest pain Qualifiers: Chest pain type: precordial pain Qualified Code(s): R07.2 - Precordial pain (4) Diabetes Qualifiers: Diabetes mellitus type: type 2 Diabetes mellitus terminal superintendent insulin use: without terminal superintendent use Diabetes mellitus complication status: with neurologic complications Diabetes mellitus complication detail: with unspecified neuropathy Qualified Code(s): E11.40 - Type 2 diabetes mellitus with diabetic neuropathy, unspecified (5) HTN (hypertension) Qualifiers: Hypertension type: essential hypertension Qualified Code(s): I10 - Essential (primary) hypertension
[2018-05-23 04:18] LABS: Basophils # 0.1 K/mcL (0.0-0.2); Basophils % 0.9 %; Eosinophils # 0.5 K/mcL (0.0-0.6); Eosinophils % 4.6 %; Hematocrit 34.1 % (35.3-44.9); Hemoglobin 11.1 g/dL (11.5-15.4); Immature Granulocytes % 0.3 % (0-4); Lymphocytes # 3.8 K/mcL (0.6-4.6); Lymphocytes % 35.9 %; Mean Corpuscular HGB Conc 32.6 g/dL (31.6-35.5); Mean Corpuscular Hemoglobin 29.3 pg (28.0-33.3); Mean Platelet Volume 10.6 fL (9.4-12.4); Monocytes % 9.1 %; Neutrophils # 5.2 K/mcL (1.6-8.9); Platelet Count 181 K/mcL (140-400); Red Blood Count 3.79 M/mcL (3.82-4.97); Red Cell Distribution Width 14.1 % (11.5-14.5); Segmented Neutrophils % 49.2 %
[2018-05-23 04:29] LABS: BUN/Creatinine Ratio 21 (6-26); Blood Urea Nitrogen 13 mg/dL (8-23); Calcium 8.8 mg/dL (8.6-10.3); Carbon Dioxide 34 mEq/L (23-29); Chloride 100 mEq/L (98-107); Glucose 130 mg/dL (70-105); Osmolality,Calculated 290 (280-300); Potassium 3.6 mEq/L (3.5-5.1); Sodium 139 mEq/L (136-145); eGFR For Non-African Americans > 60 (> 60)
[2018-05-23] MEDS: Multivit/Ca/Min/Fe/FA 1 TAB TABLET PO SCH (07:59)
[2018-05-23] MEDS: Aspirin 81 MG TAB.CHEW PO SCH (07:59)
[2018-05-23] MEDS: *HR* Glimepiride 4 MG TABLET PO SCH (07:59)
[2018-05-23] MEDS: Sucralfate 1 GM TABLET PO SCH ×2 (07:59→16:05)
[2018-05-23] MEDS: Furosemide 40 MG TABLET PO SCH (07:59)
[2018-05-23] MEDS: Metoprolol XL (24 HR) Succ 25 MG TAB.ER.24H PO SCH ×2 (07:59→20:48)
[2018-05-23] MEDS: Loratadine 10 MG TABLET PO SCH (07:59)
[2018-05-23] MEDS: Insulin LISPRO 300 UNITS/3 ML VIAL SQ SCH ×3 (08:00→16:06)
--- NOTE | 2018-05-23 10:12 | Internal Med Progress Note ---
Hospitalist Progress Note - Encounter Date of Encounter: 05/23/18 Time of Encounter: 10:11 - Subjective Interval History: Patient seen and examined at bedside. Nursing staff reports patient having dyspnea during ambulation despite oxygen use. Patient presented to the emergency department after experiencing a mechanical fall from standing she had generalized body pain and is fluctuant to the ER. CT head and cervical spine showed no acute abnormalities however prior to discharge she was ambulated and was found to be hypoxic with SPO2 of 86% and elevated blood pressure. Chest x- ray did show diffuse bilateral interstitial opacities. No leukocytosis or fever blood cultures were obtained, with an initial blood culture preliminary gram-positive cocci Staphylococcus species patient was given vancomycin concern of possible contamination second set of blood cultures have been obtained awaiting results. Continue with oxygen and bronchodilators incentive spirometry encouraged patient to ambulate -oxygen has been ordered prior to discharge - Exam Vitals: Temp Pulse Resp BP Pulse Ox 97.8 F 61 14 154/71 97 05/23/18 07:25 05/23/18 07:25 05/23/18 07:25 05/23/18 07:25 05/23/18 07:25 - Assessment and Plan (1) Community acquired pneumonia Current Visit: Yes Status: Acute Assessment and Plan: No fever or leukocytosis continue with oxygen as needed and bronchodilators. First set of blood cultures preliminary did show gram-positive cocci Staphylococcus species not S. aureus methicillin-resistant Gene-unsure if this is contaminant we will repeat blood cultures and place patient on vancomycin- awaiting final results (2) Acute respiratory failure with hypoxia Current Visit: Yes Status: Acute Assessment and Plan: Pt has no history of COPDor home oxygen use. Oxygen sats were 86% on rrom air on presentation. CXR shows opacities vs edema. will start on levaquin for community acquired pneumonia, BNP 173 , resume home dose of lasix as patient does not appear fluid overloaded No fever or white count today -oxygen saturations stable on 2 L nasal cannula- attempt to wean oxygen- approved for home oxygen as needed Ambulate patient per nursing encourage patient up to chair 3 times a day (3) Chest pain Current Visit: Yes Status: Acute Assessment and Plan: Body pain has improved troponins have been negative we will continue to monitor No chest pain voiced today states that back pain has improved with lidocaine patches (4) Diabetes Current Visit: No Status: Chronic Assessment and Plan: Glucose is stable at this time Accu-Cheks before meals and at bedtime with sliding scale insulin hold oral medications for now and resume on discharge (5) HTN (hypertension) Current Visit: Yes Status: Chronic Assessment and Plan: Currently controlled we will continue with home medications (6) Hematoma Current Visit: Yes Status: Acute Assessment and Plan: Stable at this time we will cont to Monitor (7) Hypertensive urgency Current Visit: Yes Status: Acute Assessment and Plan: Received IV enalaprilat in the ER. Currently stable continue to monitor -when necessary hydralazine- cont home medications (8) DVT prophylaxis Current Visit: Yes Status: Acute Assessment and Plan: scd - Time Spent with Patient Total time spent is greater than 50% in coordination of care (as documented) at patient's floor/unit and/or counseling patient: Internal Medicine: Result - Labs CBC & Chem 7: 05/23/18 03:50 05/23/18 03:50 Labs: Short CBC 05/23/18 Range/Units 03:50 WBC 10.6 (4.3-11.1) K/mcL Hgb 11.1 L (11.5-15.4) g/dL Hct 34.1 L (35.3-44.9) % Plt Count 181 (140-400) K/mcL Neutrophils # 5.2 (1.6-8.9) K/mcL BMP 05/23/18 03:50 Sodium 139 Potassium 3.6 Chloride 100 Carbon Dioxide 34 H BUN 13 Creatinine 0.61 Glucose 130 H Calcium 8.8 Consult Discharge Plan - Plan Referrals: Adrienne Duenas, LINUX PROGRAMMER [Primary Care Provider] - 06/06/18 10:15 am (1) Community acquired pneumonia Qualifiers: Laterality: unspecified laterality Qualified Code(s): J18.9 - Pneumonia, unspecified organism (3) Chest pain Qualifiers: Chest pain type: precordial pain Qualified Code(s): R07.2 - Precordial pain (4) Diabetes Qualifiers: Diabetes mellitus type: type 2 Diabetes mellitus correction insulin use: without roasterman use Diabetes mellitus complication status: with neurologic complications Diabetes mellitus complication detail: with unspecified neuropathy Qualified Code(s): E11.40 - Type 2 diabetes mellitus with diabetic neuropathy, unspecified (5) HTN (hypertension) Qualifiers: Hypertension type: essential hypertension Qualified Code(s): I10 - Essential (primary) hypertension
[2018-05-23] MEDS ORDERED: Levofloxacin 500 MG/100 ML 500 MG/100 ML BAG IVPB SCH (16:00)
[2018-05-24] MEDS: Insulin LISPRO 300 UNITS/3 ML VIAL SQ SCH ×3 (08:08→17:11)
[2018-05-24] MEDS: Metoprolol XL (24 HR) Succ 25 MG TAB.ER.24H PO SCH ×2 (08:09→21:09)
[2018-05-24] MEDS: Multivit/Ca/Min/Fe/FA 1 TAB TABLET PO SCH (08:09)
[2018-05-24] MEDS: Aspirin 81 MG TAB.CHEW PO SCH (08:10)
[2018-05-24] MEDS: Furosemide 40 MG TABLET PO SCH (08:10)
[2018-05-24] MEDS: Sucralfate 1 GM TABLET PO SCH ×2 (08:10→15:41)
[2018-05-24] MEDS: Loratadine 10 MG TABLET PO SCH (08:10)
[2018-05-24] MEDS: *HR* Glimepiride 4 MG TABLET PO SCH (08:10)
--- NOTE | 2018-05-24 15:16 | Internal Med Progress Note ---
Hospitalist Progress Note - Encounter Date of Encounter: 05/24/18 Time of Encounter: 15:32 - Subjective Interval History: Seen and examined at bedside. Patient is new to me, information obtained from chart review and patient report. Says she feels better would like to go home today if possible. Family at bedside and feel patient is back to baseline and able to return home safely. She has no chest pain or shortness of breath. Has a room and cough at times. Family and patient are agreeable to stay until repeat blood cultures finalize to ensure no bacteremia. - Exam Vitals: Temp Pulse Resp BP Pulse Ox 97.8 F 56 15 173/86 98 05/24/18 11:48 05/24/18 11:48 05/24/18 11:48 05/24/18 11:48 05/24/18 11:48 Exam: Skin: Free of rash and discoloration. Eyes: Sclera is white. There is no discharge from eyes. ENMT: Oral/pharyngeal mucosa is normal in appearance. There is no discharge from nose or ears. Respiratory: Normal breath sounds with no crackles and wheezes bilaterally. CV: Heart is regular with no gallop or murmur. GI: Abdomen is flat and soft with no palpable mass or visceromegaly. : There is no tenderness in patient's flanks bilaterally. Neuro exam: He has good strength in upper and lower extremities. He has normal eye movements. Examination of his gait is deferrered alert and oriented 3 Psychiatric: He has normal affect. His thought process is appropriate to the situation. - Assessment and Plan (1) Community acquired pneumonia Current Visit: Yes Status: Acute Assessment and Plan: CXR concerning for pneumonia. Afebrile, no leukocytosis. Continue Levaquin; to complete a total course of 7 days. (2) Chest pain Current Visit: Yes Status: Acute Assessment and Plan: Reportedly had chest pain on day of arrival. Denied chest pain on my exam. Serial troponins negative. No acute ST changes on EKG. Hold on further workup at this time. Continue to monitor on telemetry. (3) Diabetes Current Visit: No Status: Chronic Assessment and Plan: per hx. Blood sugars controlled. Holding home diabetes medication. SSI. Monitor blood sugar and titrate PRN (4) HTN (hypertension) Current Visit: Yes Status: Chronic Assessment and Plan: Currently controlled we will continue with home medications (5) Hematoma Current Visit: Yes Status: Acute Assessment and Plan: Stable at this time we will cont to Monitor (6) Acute respiratory failure with hypoxia Current Visit: Yes Status: Acute Assessment and Plan: Pt has no history of COPDor home oxygen use. Oxygen sats were 86% on rrom air on presentation. CXR shows opacities vs edema. will start on levaquin for community acquired pneumonia, BNP 173 , resume home dose of lasix as patient does not appear fluid overloaded No fever or white count today -oxygen saturations stable on 2 L nasal cannula- attempt to wean oxygen- approved for home oxygen as needed Ambulate patient per nursing encourage patient up to chair 3 times a day (7) Hypertensive urgency Current Visit: Yes Status: Acute Assessment and Plan: Received IV enalaprilat in the ER. BP remains elevated. Continue home BP medication, add low-dose amlodipine. PRN hydralazine (8) Positive blood culture Current Visit: Yes Status: Acute Assessment and Plan: One of 2 blood cultures from 05/20/18 with gram-positive cocci, no sensitivity at this time. Repeat blood cultures no growth to date. Continue vancomycin for another 24 hours. Suspect possible contaminant. Will likely stop vancomycin on 05/25. DVT Prophylaxis: heparin - Time Spent with Patient Total time spent is greater than 50% in coordination of care (as documented) at patient's floor/unit and/or counseling patient: Internal Medicine: Result - Labs CBC & Chem 7: 05/23/18 03:50 05/23/18 03:50 Consult Discharge Plan - Plan Referrals: Adrienne Duenas CHEMICAL TEST ENGINEER [Primary Care Provider] - 06/06/18 10:15 am (1) Community acquired pneumonia Qualifiers: Laterality: unspecified laterality Qualified Code(s): J18.9 - Pneumonia, unspecified organism (2) Chest pain Qualifiers: Chest pain type: precordial pain Qualified Code(s): R07.2 - Precordial pain (3) Diabetes Qualifiers: Diabetes mellitus type: type 2 Diabetes mellitus usp insulin use: without usp use Diabetes mellitus complication status: with neurologic complications Diabetes mellitus complication detail: with unspecified neuropathy Qualified Code(s): E11.40 - Type 2 diabetes mellitus with diabetic neuropathy, unspecified (4) HTN (hypertension) Qualifiers: Hypertension type: essential hypertension Qualified Code(s): I10 - Essential (primary) hypertension
[2018-05-24] MEDS: amLODIPine 5 MG TABLET PO SCH (15:41)
[2018-05-24] MEDS: *HR* Heparin 5,000 UNIT/ML VIAL SQ SCH (21:10)
[2018-05-25] MEDS: *HR* Heparin 5,000 UNIT/ML VIAL SQ SCH (05:24)
[2018-05-25] MEDS: Insulin LISPRO 300 UNITS/3 ML VIAL SQ SCH ×2 (07:40→11:44)
[2018-05-25] MEDS: Loratadine 10 MG TABLET PO SCH (07:44)
[2018-05-25] MEDS: Furosemide 40 MG TABLET PO SCH (07:44)
[2018-05-25] MEDS: Multivit/Ca/Min/Fe/FA 1 TAB TABLET PO SCH (07:44)
[2018-05-25] MEDS: *HR* Glimepiride 4 MG TABLET PO SCH (07:44)
[2018-05-25] MEDS: Sucralfate 1 GM TABLET PO SCH (07:44)
[2018-05-25] MEDS: Metoprolol XL (24 HR) Succ 25 MG TAB.ER.24H PO SCH (07:44)
[2018-05-25] MEDS: Aspirin 81 MG TAB.CHEW PO SCH (07:45)
[2018-05-25] MEDS: amLODIPine 5 MG TABLET PO SCH (07:45)
[2018-05-25 10:55] VITALS: BP 124/72
--- NOTE | 2018-05-25 13:26 | Discharge Summary ---
- NOTES TO OUTPATIENT PROVIDER Notes to Outpatient Provider: Recommend routine hospital follow-up Orders not resulted at time of discharge: Pending orders 05/20/18 21:01 Culture,Blood [BC] Routine 05/22/18 16:21 Culture,Blood [BC] Stat Date of Encounter: 05/25/18 Time of Encounter: 13:24 - Discharge Diagnosis (1) Acute respiratory failure with hypoxia Priority: Primary Status: Acute Assessment and Plan: Pt has no history of COPD or home oxygen use. Oxygen sats were 86% on room air on presentation. CXR shows opacities vs edema. BNP 173. Clinically does not appear to be congestive heart failure, more likely pneumonia. She completed exercise oxygenation test and oxygen saturations dropped to 86% on room air. Discharge home on oxygen. (2) Community acquired pneumonia Priority: Primary Status: Acute Assessment and Plan: CXR concerning for pneumonia. Afebrile, no leukocytosis. Continue Levaquin; to complete a total course of 7 days. Qualifiers: Laterality: unspecified laterality Qualified Code(s): J18.9 - Pneumonia, unspecified organism (3) Chest pain Priority: Primary Status: Acute Assessment and Plan: Reportedly had chest pain on day of arrival. Serial troponins negative. No acute ST changes on EKG. chest pain possibly secondary to pneumonia or musculoskeletal etiology secondary to fall. Denied chest pain at time of discharge. Recommend follow-up with PCP and/or cardiology Qualifiers: Chest pain type: precordial pain Qualified Code(s): R07.2 - Precordial pain (4) Fall Priority: Primary Status: Acute Assessment and Plan: On day of arrival; appears mechanical. Head CT and cervical spine CT unremarkable. Evaluated by PT/OT who recommended HHC. Returned to baseline at time of discharge Qualifiers: Encounter type: initial encounter Qualified Code(s): W19.XXXA - Unspecified fall, initial encounter (5) Diabetes Priority: Secondary Status: Chronic Assessment and Plan: per hx. Blood sugars controlled. Continue home diabetes medication regimen Qualifiers: Diabetes mellitus type: type 2 Diabetes mellitus mcfp insulin use: without mcfp use Diabetes mellitus complication status: with neurologic complications Diabetes mellitus complication detail: with unspecified neuropathy Qualified Code(s): E11.40 - Type 2 diabetes mellitus with diabetic neuropathy, unspecified (6) HTN (hypertension) Priority: Secondary Status: Chronic Assessment and Plan: Currently controlled we will continue with home medications Qualifiers: Hypertension type: essential hypertension Qualified Code(s): I10 - Essential (primary) hypertension (7) Hypertensive urgency Priority: Primary Status: Acute Assessment and Plan: Received IV enalaprilat in the ER. BP remains elevated. Continue home BP medication, add low-dose amlodipine. BP improved with adding amlodipine. Recommend outpatient follow-up with PCP within one week for BP recheck (8) Positive blood culture Priority: Primary Status: Acute Assessment and Plan: One of 2 blood cultures from 05/20/18 with gram-positive cocci, no sensitivity at this time. 05/22/2018 repeat blood cultures NGTD. Suspect contamination. Hospital course: please see assessment and plan for Hospital course Discharge discussed with: patient (Seen and examined at bedside. Sitting up in chair eating lunch, says she feels back to baseline would like to discharge home today. No chest pain or shortness of breath. Still has a productive cough at times. He may have bedside and feels patient is safe to return home. She will be discharged home with portable oxygen take and family was advised to call oxygen company wants to return home for concentrator delivery) - Time Spent with Patient Total time spent providing and/or coordinating discharge services: - Discharge Medications Prescriptions: amLODIPine [Norvasc] 5 mg PO DAILY #30 tablet Levofloxacin [Levaquin] 500 mg PO DAILY #4 tablet Home Medications: Amitriptyline [Elavil] 10 mg PO HS 12/27/16 [History] Citalopram Hydrobromide [Citalopram HBr] 10 mg PO DAILY 12/27/16 [History] Furosemide [Lasix] 40 mg PO DAILY 12/27/16 [History] Gabapentin [Neurontin] 300 mg PO QAM 12/27/16 [History] Glimepiride [Amaryl] 4 mg PO QAM 12/27/16 [History] Loratadine [Claritin] 10 mg PO DAILY 12/27/16 [History] Losartan Potassium [Cozaar] 100 mg PO DAILY 12/27/16 [History] Naproxen Sodium [Aleve] 220 mg PO Q12H 12/27/16 [History] Potassium Chloride [K-Tab ER] 20 meq PO DAILY 12/27/16 [History] Sucralfate [Carafate] 1 gm PO 0730,1630 12/27/16 [History] metFORMIN [Glucophage] 500 mg PO BIDWM 12/27/16 [History] Aspirin 81 mg PO DAILY 30 Days tab.chew 12/29/16 [Rx] Simvastatin [Zocor] 40 mg PO HS 30 Days tablet 12/29/16 [Rx] Alendronate Sodium [Fosamax] 70 mg PO QWEEK 05/20/18 [History] Gabapentin [Neurontin] 600 mg PO QPM 05/20/18 [History] Metoprolol Succinate [Toprol Xl] 25 mg PO BID 05/20/18 [History] Multivitamin [One Daily Essential] 1 tab PO DAILY 05/20/18 [History] Levofloxacin [Levaquin] 500 mg PO DAILY #4 tablet 05/25/18 [Rx] amLODIPine [Norvasc] 5 mg PO DAILY #30 tablet 05/25/18 [Rx] Allergies/Adverse Reactions: 3 Allergy/AdvReac Type Severity Reaction Status Date / Time latex Allergy Rash Verified 01/13/16 12:26 adhesive AdvReac Rash Verified 12/27/16 22:36 modafinil [From Provigil] AdvReac Unkown Verified 12/27/16 22:36 Penicillins [PCN] AdvReac Rash Verified 01/13/16 12:26 Date of admission: 05/20/18 19:15 Primary care physician: Adrienne Duenas CNP Consults: 05/20/18 19:20 Consult to Physical Therapy [CONS] Routine Comment: Evaluate, develop and implement POC Reason for Consult: deconditioning Does patient have active BEDREST order?: No Is patient medically & hemodynamically stable?: No Patient assessed for mobility or mobilized this visit?: No 05/21/18 08:33 Consult to Occupational Therapy [CONS] Routine Comment: Evaluate, develop and implement POC Reason for Consult: D/C PLANNING. Does patient have active BEDREST order?: No Is patient medically & hemodynamically stable?: Yes Discharging clinician: Nuha Kinsey Anticipated date of discharge: 05/25/18 - Constitutional Vitals: Temp Pulse Resp BP Pulse Ox 97.8 F 57 16 124/72 99 05/25/18 10:49 05/25/18 10:49 05/25/18 10:49 05/25/18 10:49 05/25/18 10:49 General appearance: Present: A&O X 3, morbidly obese, pleasant, no acute distress - Head Head exam: Present: atraumatic, normocephalic - Eye Eye exam: Present: PERRL, conjuntiva pink, sclera anicteric Pupils: Present: PERRL - Neck Neck exam general surgery: Present: supple, trachea midline. Absent: lymphadenopathy - Respiratory Respiratory exam: Present: CTAB. Absent: accessory muscle use, rales, rhonchi, wheezes - Cardiovascular Cardiovascular exam: Present: RRR, +S1, +S2. Absent: diastolic murmur, gallop, rubs, systolic murmur - GI/Abdominal GI/Abdominal exam: Present: normal bowel sounds, soft, no peritoneal signs. Absent: distended, tenderness - Extremities Exam Extremities exam: Present: warm, radial pulses palpable and symmetrical. Absent : calf tenderness, cyanotic, pedal edema - Neurological Exam Neurological exam: Present: CN II-XII intact, oriented X3, no focal deficits. Absent: pronater drift, facial droop, speech deficit - Skin Skin exam: Present: dry, intact - Patient Status Disposition: Home Health Service Condition: Good Functional capacity at discharge: uses cane/walker Overall status at discharge: patient is progressing back to baseline - Discharge Instructions Instructions: Community-acquired Pneumonia (DC), Levofloxacin (By mouth), Using Oxygen at Home (DC), Amlodipine (By mouth) Follow Up With: Adrienne Duenas CNP [Primary Care Provider] - 06/06/18 10:15 am - Diet and Activity Activity: ambulate only with your walker, as per physical therapy Diet: diabetic diet, low fat, low cholesterol
[2018-05-25] MEDS ORDERED: Aminoglycoside Consult 1 EACH MC ONE (14:24)
--- NOTE | 2018-05-26 11:23 | Physician Discharge Referral ---
Home Health/Hosp Referral Info Transfer to: Home Health Attending Provider: Nuha Kinsey CNP Provider in Charge Post Discharge: PCP - Diagnosis (1) Acute respiratory failure with hypoxia Status: Acute (2) Community acquired pneumonia Status: Acute (3) Chest pain Status: Acute (4) Fall Status: Acute (5) Diabetes Status: Chronic (6) HTN (hypertension) Status: Chronic (7) Hypertensive urgency Status: Acute (8) Positive blood culture Status: Acute - Respiratory Orders Oxygen / L per min (2) Smoking Cessation: Smoking cessation has been advised. For more information, call the [place] Tobacco Quit Line at 2-479-UYXT-NOW. - Diet/Nutrition Diet/Nutrition Orders: Regular - Activity Activity Orders: Up ad filipe, Walker - Services Needed Following services are medically necessary services: Nursing, Home Health Aide, Physical Therapy, Occupational Therapy - Transfer Medications Prescriptions: amLODIPine [Norvasc] 5 mg PO DAILY #30 tablet Levofloxacin [Levaquin] 500 mg PO DAILY #4 tablet Home Medications: Amitriptyline [Elavil] 10 mg PO HS 12/27/16 [History] Citalopram Hydrobromide [Citalopram HBr] 10 mg PO DAILY 12/27/16 [History] Furosemide [Lasix] 40 mg PO DAILY 12/27/16 [History] Gabapentin [Neurontin] 300 mg PO QAM 12/27/16 [History] Glimepiride [Amaryl] 4 mg PO QAM 12/27/16 [History] Loratadine [Claritin] 10 mg PO DAILY 12/27/16 [History] Losartan Potassium [Cozaar] 100 mg PO DAILY 12/27/16 [History] Naproxen Sodium [Aleve] 220 mg PO Q12H 12/27/16 [History] Potassium Chloride [K-Tab ER] 20 meq PO DAILY 12/27/16 [History] Sucralfate [Carafate] 1 gm PO 0730,1630 12/27/16 [History] metFORMIN [Glucophage] 500 mg PO BIDWM 12/27/16 [History] Aspirin 81 mg PO DAILY 30 Days tab.chew 12/29/16 [Rx] Simvastatin [Zocor] 40 mg PO HS 30 Days tablet 12/29/16 [Rx] Alendronate Sodium [Fosamax] 70 mg PO QWEEK 05/20/18 [History] Gabapentin [Neurontin] 600 mg PO QPM 05/20/18 [History] Metoprolol Succinate [Toprol Xl] 25 mg PO BID 05/20/18 [History] Multivitamin [One Daily Essential] 1 tab PO DAILY 05/20/18 [History] Levofloxacin [Levaquin] 500 mg PO DAILY #4 tablet 05/25/18 [Rx] amLODIPine [Norvasc] 5 mg PO DAILY #30 tablet 05/25/18 [Rx] Allergies/Adverse Reactions: 3 Allergy/AdvReac Type Severity Reaction Status Date / Time latex Allergy Rash Verified 01/13/16 12:26 adhesive AdvReac Rash Verified 12/27/16 22:36 modafinil [From Provigil] AdvReac Unkown Verified 12/27/16 22:36 Penicillins [PCN] AdvReac Rash Verified 01/13/16 12:26 Certification: Further, I certify that my clinical findings support that this patient is homebound (i.e. absences from home require considerable and taxing effort and are for medical reasons or sabianism services or infrequently or short duration when for other reasons) because: Homebound Reason: Leaving home requires considerable and taxing effort due to condition Attestation: My signature below is to certify that this patient is under my care and that I, or nurse practitioner, or a physician's gift shop assistant working with me, has a face-to -face encounter with this patient.
== END 2018-05-25 14:25 | disposition home health service (06) ==
LOC: EMEROO 16:05 → 3BNU 16:05
PROVIDERS: ADMIT Internal Medicine; ATTEND Internal Medicine